=== PATIENT | female | born 1965 | race Caucasian/White ===

== ENCOUNTER 2020-09-07 10:10 | Inpatient (IN) ==
[2020-09-07] MEDS ORDERED: 0.9 % SODIUM CHLORIDE 1,000 ML IV ONE ×3 (10:33→21:35)
[2020-09-07] MEDS ORDERED: ONDANSETRON 4 MG/2 ML VIAL IV ONE (10:33)
--- NOTE | 2020-09-07 10:40 | Emergency Department Note ---
Abdominal Pain HPI General Chief Complaint: Abdominal Pain Stated Complaint: abdominal pain Time Seen by Provider: 09/07/20 10:31 Source: patient Mode of arrival: wheelchair Limitations: no limitations History of Present Illness HPI Narrative: Narrative: Presents to room T6 for evaluation of midepigastric abdominal pain. Patient has a history of recurrent chronic pancreatitis as well as IBS. The patient was seen in the emergency department last week for similar symptoms. At that time lipase was [address] scan showed inflammation of the pancreatic head consistent with pancreatitis. The patient was treated s ymptomatically and discharged home. The patient reports that she has had persistent pain with nausea. The symptoms are getting worse so she was advised by her PCP to return to the emergency department for further evaluation. There is no fevers or chills. No hematemesis. No black stool. No rectal bleeding. Related Data Home Medications Medication Instructions Recorded Confirmed Advocare probiotic PO QDAY 05/29/18 07/24/20 acetaminophen 1,000 mg PO PRN PRN 05/29/18 09/02/20 loperamide See Rx Instructions PO .COMPLEX PRN 07/09/20 09/02/20 naltrexone PO 07/09/20 07/24/20 Previous Rx's Medication Instructions Recorded butalbital 50 mg-acetaminophen 325 1 cap PO Q4H PRN #30 cap 04/15/19 mg-caffeine 40 mg-codeine 30 mg cap clobetasol 0.05 % topical cream 1 applic TOPICAL BID #60 g 11/27/19 chlorthalidone 25 mg tablet 25 mg PO QDAY #30 tab 08/07/20 cyclobenzaprine 10 mg tablet 10 mg PO TID PRN #90 tab 08/07/20 lisinopril 40 mg tablet 40 mg PO QDAY #90 tab 08/07/20 ondansetron HCl [Zofran] 4 mg PO Q6H PRN #14 tab 09/02/20 oxycodone-acetaminophen [Percocet] 1 tab PO Q6H PRN #14 tab 09/02/20 estradiol 1 mg tablet 1 mg PO QDAY #90 tab 09/07/20 propranolol 80 mg capsule,extended 160 mg PO QDAY #180 cap 09/07/20 release 24 hr rabeprazole 20 mg tablet,delayed 20 mg PO QDAY #90 tab 09/07/20 release Allergies Allergy/AdvReac Type Severity Reaction Status Date / Time ibuprofen Allergy Unknown Stomach Verified 07/24/20 13:10 upset, diarrhea NSAIDS (Non-Steroidal Allergy Unknown Unknown Verified 07/24/20 13:10 Anti-Inflamma Review of Systems ROS ROS Narrative: Narrative: All systems ED: reviewed and negative except as stated. [facility] Narrative Patient History Narrative: Narrative: Medical/Surgical/Family History All Active Problems (Updated 09/07/20 @ 14:10 by Merrick Calero MD) Abdominal pain (Acute) Sinusitis, acute (Chronic) Mixed hyperlipidemia (Chronic) Chronic kidney disease, stage III (moderate) (Chronic) Herpes simplex without mention of complication (Chronic) Postcoital bleeding (Chronic) Abnormal results of kidney function studies (Chronic) Genital herpes (Chronic) Hot flashes (Chronic) Vaginal atrophy (Chronic) Hormone replacement therapy (Chronic) Neck pain, chronic (Chronic) Mixed irritable bowel syndrome (Chronic) Obesity (BMI 30.0-34.9) (Chronic) Grief reaction (Chronic) Cephalgia (Chronic) CFS (chronic fatigue syndrome) (Chronic) Pyrosis (Chronic) Rectal bleeding (Chronic) Gastric regurgitation (Chronic) Pancreatitis (Chronic) Dysphagia (Chronic) Diarrhea (Chronic) Delayed gastric emptying (Chronic) Costochondritis (Chronic) Colicky LUQ abdominal pain (Chronic) Bloating (Chronic) Disorder of thyroid gland (Chronic) Stomach ulcer (Chronic) High cholesterol (Chronic) High blood pressure (Chronic) IBS (irritable bowel syndrome) (Chronic) Anemia (Chronic) Vitamin D deficiency (Chronic) Swelling of limb (Chronic) Migraine (Chronic) Hyperlipidemia (Chronic) Gastroesophageal reflux (Chronic) Myositis (Chronic) Fibromyalgia (Chronic) Esophageal stricture (Chronic) Chronic pancreatitis (Chronic) Chronic kidney disease, stage II (mild) (Chronic ~12/12/12) Medical History Abnormal results of kidney function studies Anemia Bloating Cephalgia CFS (chronic fatigue syndrome) Chronic kidney disease, stage II (mild) (~12/12/12) Chronic kidney disease, stage III (moderate) Chronic pancreatitis Colicky LUQ abdominal pain Costochondritis Delayed gastric emptying Diarrhea Disorder of thyroid gland Dysphagia Elevated BP without diagnosis of hypertension Esophageal stricture Fibromyalgia Gastric regurgitation Gastroesophageal reflux Genital herpes Grief reaction Herpes simplex without mention of complication High blood pressure hard to control at times High cholesterol Hormone replacement therapy Hot flashes Hyperlipidemia IBS (irritable bowel syndrome) Migraine Mixed hyperlipidemia Mixed irritable bowel syndrome Myositis Neck pain, chronic Obesity (BMI 30.0-34.9) Pancreatitis Postcoital bleeding Pyrosis Rectal bleeding Sinusitis, acute Stomach ulcer Swelling of limb Vaginal atrophy Vitamin D deficiency Surgical History History of appendectomy History of cholecystectomy History of colonoscopy (~2015) Dr Benz & 2007, Dr Guan History of esophagogastroduodenoscopy (EGD) Dr Benz-12/25/14 and 10/04/16 History of hysterectomy History of oophorectomy Status post biopsy of thyroid gland (~04/13/18) Family History Mother Breast cancer in female Father Colon cancer Dementia Diabetes mellitus Hypertension, essential Heart attack Alzheimer's disease Brother Anal cancer Colon cancer Grandfather Migraines Maternal Grandmother Migraines Paternal Sister Thyroid disease Social History Smoking Status: Never smoker Alcohol Intake Frequency: holiday/special occasion only Substance Use: does not use Exam Narrative Narrative: Narrative: General Limitations: no limitations General appearance: Present alert and in no apparent distress Head Head: Present atraumatic, normocephalic and normal inspection Eye Eye: Present normal appearance and EOMI; Absent conjunctival injection ENT ENT: Present normal exam and mucous membranes moist Neck Neck: Present normal inspection and trachea midline Respiratory Respiratory: Present normal lung sounds bilaterally; Absent respiratory distress Cardiovascular Cardiovascular: Present regular rate, normal rhythm and normal heart sounds Adbominal Abdominal: Present soft and tenderness (Moderate diffuse tenderness to palpation throughout the epigastrium, no focal tenderness); Absent distention, guarding and rebound Extremities Extremities: Present normal inspection; Absent tenderness Back Back: Present normal inspection; Absent tenderness Neurological Neurological: Present alert, oriented X3 and CN II-XII intact; Absent motor sensory deficit Psychiatric Psychiatric: Present normal affect and normal mood Skin Skin: Present warm (WNL) and dry; Absent rash Course Vital Signs Vital signs: Vital Signs Temperature 97.9 F 09/07/20 10:10 Pulse Rate 100 H 09/07/20 10:10 Respiratory Rate 18 09/07/20 10:10 Blood Pressure 91/55 09/07/20 10:10 Pulse Oximetry (%) 97 09/07/20 10:10 Temperature 97.9 F 09/07/20 10:10 Pulse Rate 80 09/07/20 13:01 Respiratory Rate 18 09/07/20 10:10 Blood Pressure 97/49 09/07/20 13:01 Pulse Oximetry (%) 94 09/07/20 13:01 [facility] Narrative Medical decision making narrative: Narrative: The patient presents for evaluation of abdominal pain which is diffuse and consistent with previous diagnosis of pancreatitis. The patient's lipase today is normal. The patient's BUN and creatinine is significantly elevated compared to 5 days ago. The patient gives additional history stating that she has been evaluated by nephrology, Dr. Olivier, in the past for kidney issues. She does report that she has had decreased urine output. The patient also takes chlorthalidone and lisinopril but states she started the chlorthalidone over a month ago. I suspect the patient's elevated BUN creatinine is most likely related to the contrast associated with her CT 5 days ago as well as decreased oral intake secondary to her pancreatitis diagnosis. The patient has a nonsurgical abdomen on exam and I do not believe she requires additional advanced imaging such as CT scan of the abdomen pelvis. Of note, CT scan 5 days ago showed no significant abnormality of the renal collecting system. The patient was treated with IV fluid as well as symptomatically. I did discuss the case with Dr. Olivier and he agrees to the treatment plan and admission. Of also discussed the case with the admitting hospitalist, Dr. Glass. Lab Data Result diagrams: 09/07/20 10:31 09/07/20 10:31 Labs: Lab Results 09/07/20 09/07/20 Range/Units 10:31 10:31 WBC 14.2 H (4.5-11.0) K/mcL RBC 4.65 (4.00-5.20) M/mcL Hgb 13.8 (12.0-15.0) g/dL Hct 40.6 (36.0-48.0) % MCV 87.3 (80.0-100.0) fL MCH 29.7 (26.0-34.0) pg MCHC 34.0 (31.0-36.0) g/dL RDW 12.3 (11.5-14.5) % Plt Count 468 H (140-440) K/mcL MPV 9.1 (7.4-10.4) fL Neut % (Auto) 68.1 (38.0-78.0) % Lymph % (Auto) 19.6 (15.0-49.0) % [place] % (Auto) 9.0 (1.0-12.0) % Eos % (Auto) 2.7 (0.0-7.0) % Baso % (Auto) 0.6 (0.0-2.0) % Lymph # (Auto) 2.78 (1.50-4.80) K/mcL [place] # (Auto) 1.28 H (0.10-0.90) K/mcL Eos # (Auto) 0.38 (0.00-0.70) K/mcL Baso # (Auto) 0.08 (0.00-0.20) K/mcL Absolute Neutrophils 9.67 H (1.80-8.00) K/mcL Sodium 130 L (133-145) mmol/L Potassium 3.3 (3.3-5.1) mmol/L Chloride 85 L (96-108) mmol/L Carbon Dioxide 28 (22-30) mmol/L Anion Gap 17.0 H (8.0-16.0) BUN 40 H (6-20) mg/dL Creatinine 4.6 H (0.6-1.1) mg/dL GFR Calculation 10 Glucose 142 H (70-105) mg/dL Calcium 9.6 (8.6-10.4) mg/dL Total Bilirubin 0.4 (0.1-1.0) mg/dL AST 25 (<32) U/L ALT 27 (<40) U/L Alkaline Phosphatase 153 H (39-117) U/L Total Protein 8.3 (5.9-8.4) gm/dL Albumin 3.9 (3.2-5.2) gm/dL Globulin 4.4 H (2.2-3.7) gm/dL Albumin/Globulin Ratio 0.9 L (1.0-2.3) Lipase 45 (7-60) U/L Discharge Plan Patient/Caregiver Discharge Instructions Pt seen by DIE HARDENER/PA only: No Clinical Impression: Abdominal pain, Abnormal results of kidney function studies Patient Disposition: Xfer As Inpt ([facility]) Follow up with: Tegan Mcdonough PA-C [Primary Care Provider] - Prescriptions: No Action dxxntouvzj-[id number]-cod [id number] mg capsule 1 cap PO Q4H PRN (Reason: migraine headache) Qty: 30 RF: 0 clobetasol 0.05 % cream 1 applic TOPICAL BID Qty: 60 RF: 0 cyclobenzaprine 10 mg tablet 10 mg PO TID PRN (Reason: muscle spasm) Qty: 90 RF: 0 propranolol 80 mg capsule,extended release 24hr 160 mg PO QDAY Qty: 180 RF: 1 rabeprazole 20 mg tablet,delayed release (DR/EC) 20 mg PO QDAY Qty: 90 RF: 1 estradiol 1 mg tablet 1 mg PO QDAY Qty: 90 RF: 1 acetaminophen 1,000 mg PO PRN PRN (Reason: Pain) RF: 0 Advocare probiotic PO QDAY RF: 0 loperamide See Rx Instructions PO .COMPLEX PRN (Reason: Diarrhea) RF: 0 naltrexone PO RF: 0 chlorthalidone 25 mg tablet 25 mg PO QDAY Qty: 30 RF: 2 lisinopril 40 mg tablet 40 mg PO QDAY Qty: 90 RF: 1 oxycodone-acetaminophen [Percocet] 10-325 mg tablet 1 tab PO Q6H PRN (Reason: pain) Qty: 14 RF: 0 ondansetron HCl [Zofran] 4 mg tablet 4 mg PO Q6H PRN (Reason: nausea and vomiting) Qty: 14 RF: 0
[2020-09-07] MEDS: HYDROmorphone 0.5 MG/0.5 ML SYRINGE IV PRN ×2 (11:05→13:17)
[2020-09-07 11:26] LABS: Basophils # (Auto) 0.08 K/mcL (0.00-0.20); Basophils % (Auto) 0.6 % (0.0-2.0); Eosinophils # (Auto) 0.38 K/mcL (0.00-0.70); Eosinophils % (Auto) 2.7 % (0.0-7.0); Hematocrit 40.6 % (36.0-48.0); Hemoglobin 13.8 g/dL (12.0-15.0); Lymphocytes # (Auto) 2.78 K/mcL (1.50-4.80); Lymphocytes % (Auto) 19.6 % (15.0-49.0); Mean Cell Volume 87.3 fL (80.0-100.0); Mean Platelet Volume 9.1 fL (7.4-10.4); Monocytes # (Auto) 1.28 K/mcL (0.10-0.90); Neutrophils % (Auto) 68.1 % (38.0-78.0); Platelet Count 468 K/mcL (140-440); RBC 4.65 M/mcL (4.00-5.20); Red Cell Distribution Width 12.3 % (11.5-14.5); WBC 14.2 K/mcL (4.5-11.0)
[2020-09-07 11:46] LABS: ALT/SGPT 27 U/L (<40); AST/SGOT 25 U/L (<32); Albumin 3.9 gm/dL (3.2-5.2); Albumin/Globulin Ratio 0.9 (1.0-2.3); Alkaline Phosphatase 153 U/L (39-117); Bilirubin,Total 0.4 mg/dL (0.1-1.0); Blood Urea Nitrogen 40 mg/dL (6-20); Calcium 9.6 mg/dL (8.6-10.4); Carbon Dioxide 28 mmol/L (22-30); Chloride 85 mmol/L (96-108); Globulin 4.4 gm/dL (2.2-3.7); Glomerular Filtration Rate 10; Glucose 142 mg/dL (70-105)
--- NOTE | 2020-09-07 14:39 | Internal Med History&Physical ---
HPI History of Present Illness Patient information: Note initiated : 09/07/20 at 2:39 pm Service Date, if different from initiated Date: [] Patient: Priscila Ames a 54 y/o F admitted on for abdominal pain. Chief Complaint: [] History of present illness: Ms. Ames is a 54 year old F with a history of chronic abdominal pain, diagnosis of chronic pancreatitis in her chart, history of CKD stage III, the recent creatinines would appear to be CKD stage II, fibromyalgia, irritable bowel, history of migraine who presents to the ED with persistent abdominal pain and nausea. Patient was seen on 09/02 with abdominal pain. She had a normal lipase at 60, however she had epigastric pain radiating to the back and CT scan of the abdomen with contrast showed inflammation around the pancreatic head. She was diagnosed with acute exacerbation of pancreatitis. She was discharged home with symptomatic medications. States since that time she has not felt better. She has been unable to eat or drink much secondary to nausea as well as the constant epigastric pain which continues to radiate to the back. She has not had any emesis. During this time she is noticed that she has had decreased urine output and feels lightheaded when she stands. She returns because her symptoms have not improved except that her abdomen does not feel as bloated as it was on 09/02. In the ED evaluation shows epigastric tenderness. Lab evaluation is remarkable for acute kidney injury with creatinine of 4.6, whereas it was 1.0 on 09/02. There is mild hyponatremia, sodium 130. Her white count was 14.2, down from 18.8 on 09/02. Lipase today is 45. Total bilirubin and transaminases are normal. She had normal triglycerides back in April. She is being admitted for further management of acute kidney injury and ongoing pancreatitis. Patient denies fevers, she has felt chilled at night, this is somewhat chronic but more so in the last week. She usually has hot flashes, but none recently. She feels like she is starting to get a migraine with occasional vision prodrome. Her throat is sore, she feels that is because her mouth is been dry. As noted she feels lightheaded when she stands, has noted decreased urine output, no dysuria. Nausea as noted above, no emesis, abdominal pain in the epigastrium as above. No rashes, no joint swelling, no bleeding or bruising, though she notes she tends to bruise easily. She has IBS, most recent bowel movement appeared abnormal, perhaps with bilious looking content. No blood. She feels fatigued and overall has malaise. Review of Systems All systems: reviewed and no additional remarkable complaints except as stated PFSH PFSH All Active Problems (Updated 09/07/20 @ 14:10 by Merrick Calero MD) Abdominal pain (Acute) Sinusitis, acute (Chronic) Mixed hyperlipidemia (Chronic) Chronic kidney disease, stage III (moderate) (Chronic) Herpes simplex without mention of complication (Chronic) Postcoital bleeding (Chronic) Abnormal results of kidney function studies (Chronic) Genital herpes (Chronic) Hot flashes (Chronic) Vaginal atrophy (Chronic) Hormone replacement therapy (Chronic) Neck pain, chronic (Chronic) Mixed irritable bowel syndrome (Chronic) Obesity (BMI 30.0-34.9) (Chronic) Grief reaction (Chronic) Cephalgia (Chronic) CFS (chronic fatigue syndrome) (Chronic) Pyrosis (Chronic) Rectal bleeding (Chronic) Gastric regurgitation (Chronic) Pancreatitis (Chronic) Dysphagia (Chronic) Diarrhea (Chronic) Delayed gastric emptying (Chronic) Costochondritis (Chronic) Colicky LUQ abdominal pain (Chronic) Bloating (Chronic) Disorder of thyroid gland (Chronic) Stomach ulcer (Chronic) High cholesterol (Chronic) High blood pressure (Chronic) IBS (irritable bowel syndrome) (Chronic) Anemia (Chronic) Vitamin D deficiency (Chronic) Swelling of limb (Chronic) Migraine (Chronic) Hyperlipidemia (Chronic) Gastroesophageal reflux (Chronic) Myositis (Chronic) Fibromyalgia (Chronic) Esophageal stricture (Chronic) Chronic pancreatitis (Chronic) Chronic kidney disease, stage II (mild) (Chronic ~12/12/12) Medical History Abnormal results of kidney function studies Anemia Bloating Cephalgia CFS (chronic fatigue syndrome) Chronic kidney disease, stage II (mild) (~12/12/12) Chronic kidney disease, stage III (moderate) Chronic pancreatitis Colicky LUQ abdominal pain Costochondritis Delayed gastric emptying Diarrhea Disorder of thyroid gland Dysphagia Elevated BP without diagnosis of hypertension Esophageal stricture Fibromyalgia Gastric regurgitation Gastroesophageal reflux Genital herpes Grief reaction Herpes simplex without mention of complication High blood pressure hard to control at times High cholesterol Hormone replacement therapy Hot flashes Hyperlipidemia IBS (irritable bowel syndrome) Migraine Mixed hyperlipidemia Mixed irritable bowel syndrome Myositis Neck pain, chronic Obesity (BMI 30.0-34.9) Pancreatitis Postcoital bleeding Pyrosis Rectal bleeding Sinusitis, acute Stomach ulcer Swelling of limb Vaginal atrophy Vitamin D deficiency Surgical History History of appendectomy History of cholecystectomy History of colonoscopy (~2015) Dr Benz & 2008, Dr Guan History of esophagogastroduodenoscopy (EGD) Dr Benz-12/25/14 and 10/04/16 History of hysterectomy History of oophorectomy Status post biopsy of thyroid gland (~04/13/18) Family History Mother Breast cancer in female Father Colon cancer Dementia Diabetes mellitus Hypertension, essential Heart attack Alzheimer's disease Brother Anal cancer Colon cancer Grandfather Migraines Maternal Grandmother Migraines Paternal Sister Thyroid disease Social History marital status: occupational status: employed smoking status: Never smoker alcohol intake frequency: holiday/special occasion only substance use type: does not use MEDS/ALLERGIES Home Medications and Allergies Home Medications Medication Instructions Recorded Confirmed Type acetaminophen 1,000 mg PO PRN PRN 05/29/18 09/07/20 History butalbital 50 mg-acetaminophen 325 1 cap PO Q4H PRN #30 cap 04/15/19 09/07/20 Rx mg-caffeine 40 mg-codeine 30 mg cap loperamide See Rx Instructions PO .COMPLEX PRN 07/09/20 09/07/20 History naltrexone 3 mg PO HS 07/09/20 09/07/20 History chlorthalidone 25 mg tablet 25 mg PO QDAY #30 tab 08/07/20 09/07/20 Rx cyclobenzaprine 10 mg tablet 10 mg PO TID PRN #90 tab 08/07/20 09/07/20 Rx lisinopril 40 mg tablet 40 mg PO QDAY #90 tab 08/07/20 09/07/20 Rx ondansetron HCl [Zofran] 4 mg PO Q6H PRN #14 tab 09/02/20 09/07/20 Rx oxycodone-acetaminophen [Percocet] 1 tab PO Q6H PRN #14 tab 09/02/20 09/07/20 Rx clobetasol 1 applic TOPICAL BID PRN 09/07/20 09/07/20 History estradiol 1 mg tablet 1 mg PO QDAY #90 tab 09/07/20 09/07/20 Rx propranolol 80 mg capsule,extended 160 mg PO QDAY #180 cap 09/07/20 09/07/20 Rx release 24 hr rabeprazole 20 mg tablet,delayed 20 mg PO QDAY #90 tab 09/07/20 09/07/20 Rx release Allergies Allergy/AdvReac Type Severity Reaction Status Date / Time ibuprofen Allergy Unknown Stomach Verified 07/24/20 13:10 upset, diarrhea NSAIDS (Non-Steroidal Allergy Unknown Unknown Verified 07/24/20 13:10 Anti-Inflamma EXAM Constitutional Vitals: Temp Pulse Resp BP Pulse Ox 97.9 F 80 18 94/56 97 09/07/20 10:10 09/07/20 13:52 09/07/20 10:10 09/07/20 13:31 09/07/20 13:52 GENERAL: Alert, oriented, appears mildly uncomfortable. Cooperative, appears stated age. HEENT: Atraumatic. PERRL at 6 mm, conjunctiva clear, no scleral icterus. Hearing grossly intact. Oropharynx with dry mucous membranes, no lip or gum lesions, no pharyngeal erythema, tongue midline NECK: Supple without meningismus, no thyromegaly RESPIRATORY: Breath sounds clear bilaterally without wheezes or rhonchi. Respiratory effort is unlabored. CARDIOVASCULAR: Regular rate and rhythm, no murmur gallop or rub. No peripheral edema. Carotid pulses 2+. GI: Abdomen soft, mild to moderate epigastric tenderness without guarding or rebound. Bowel sounds are decreased but present. No right upper quadrant tenderness. MUSCULOSKELETAL: No joint erythema or swelling, normal range of motion in all extremities. SKIN: Intact, warm, dry. No lesions. Skin turgor normal. NEUROLOGIC: Cranial nerves II through XII grossly intact. Muscle mass normal. Strength 5/5 in the upper and lower extremities. Sensation intact to light touch bilaterally. PSYCHIATRIC: Alert, oriented x3, mood congruent to situation, normal affect, normal insight. DATA Data Completed and Pending Labs: Labs from last 24 hours 09/07/20 09/07/20 10:31 10:31 WBC 14.2 H RBC 4.65 Hgb 13.8 Hct 40.6 MCV 87.3 MCH 29.7 MCHC 34.0 RDW 12.3 Plt Count 468 H MPV 9.1 Neut % (Auto) 68.1 Lymph % (Auto) 19.6 [place] % (Auto) 9.0 Eos % (Auto) 2.7 Baso % (Auto) 0.6 Lymph # (Auto) 2.78 [place] # (Auto) 1.28 H Eos # (Auto) 0.38 Baso # (Auto) 0.08 Absolute Neutrophils 9.67 H Sodium 130 L Potassium 3.3 Chloride 85 L Carbon Dioxide 28 Anion Gap 17.0 H BUN 40 H Creatinine 4.6 H GFR Calculation 10 Glucose 142 H Calcium 9.6 Total Bilirubin 0.4 AST 25 ALT 27 Alkaline Phosphatase 153 H Total Protein 8.3 Albumin 3.9 Globulin 4.4 H Albumin/Globulin Ratio 0.9 L Lipase [address] scan - abdomen: Status: image reviewed by me Additional comments: Study from 09/02 reviewed Impression: Acute pancreatitis involving the pancreatic head. A/P Narrative A/P Narrative: #Acute kidney injury: Patient's creatinine was 1.0 on 09/02, now 4.6 on 09/07. -Clinically she has noted decreased urine output -Has had ongoing nausea and decreased oral intake -Differential includes ATN/contrast-induced nephropathy after IV contrast on 09/02 -ATN from low blood pressure from dehydration and prerenal causes from dehydration also possible -Chlorthalidone and lisinopril may be contributing -No nonsteroidal use #Acute pancreatitis: Patient with chronic epigastric pain and diagnosis of chronic pancreatitis, but with acute inflammation at the head on 09/02 -Pain ongoing associated with nausea -Unclear trigger, no evidence of biliary disease, normal triglycerides when checked 04/2020 #CKD stage III, though most recently appears to be stage II: Unclear etiology, has seen nephrology in the past #Migraines: On propranolol for prophylaxis #Fibromyalgia #Irritable bowel syndrome Plan: * Inpatient admission * Nephrology consultation, Dr. Olivier called from the ED * Check renal ultrasound * Check fractional excretion of sodium and urea * Hold lisinopril, chlorthalidone * Hold propranolol with low normal blood pressures * Received 2 L fluid in the ED, will begin maintenance fluids * Avoid nephrotoxins, follow urine output * Clear liquid diet * Pain medications for pancreatitis * Antiemetics as needed Prophylaxis: Subcutaneous unfractionated heparin CODE STATUS: Full code
[2020-09-07] MEDS ORDERED: SENNOSIDES 1 TABLET PO PRN (15:23)
[2020-09-07] MEDS ORDERED: 0.9 % SODIUM CHLORIDE 1,000 ML IV SCH (15:23)
[2020-09-07] MEDS: ONDANSETRON 4 MG/2 ML VIAL IV PRN (16:05)
[2020-09-07] MEDS: morphine 4 MG/ML VIAL IV PRN ×2 (16:05→20:12)
--- NOTE | 2020-09-07 17:19 | Ultrasound Report ---
CLINICAL INFORMATION: [facility]AR COMPARISON: None. FINDINGS: Both kidneys are normal and symmetric in size, position, configuration and echotexture: The right is 11.8 x 5 cm left is 11.8 x 5 cm. No focal renal lesions appreciated: no stones, cysts, solid nodules or hydronephrosis. Urinary bladder has a small amount of urine 20 cc: she was unable to void. No focal lesions IMPRESSION: Negative exam Interpreted and Authenticated by: Mauro Erickson 09/07/20
[2020-09-07] MEDS: HEPARIN 5,000 UNIT/ML VIAL SQ SCH (20:13)
[2020-09-07] MEDS: 0.9 % SODIUM CHLORIDE 10 ML SYRINGE IV SCH (20:13)
[2020-09-07] MEDS ORDERED: PROCHLORPERAZINE 10 MG/2 ML VIAL IV PRN (21:36)
[2020-09-07] MEDS: 0.9 % SODIUM CHLORIDE 1,000 ML IV SCH (22:55)
[2020-09-07] MEDS: ACETAMINOPHEN 325 MG TABLET PO PRN (23:04)
[2020-09-07] MEDS: hydrOXYzine 10 MG TABLET PO PRN (23:12)
[2020-09-08] MEDS: 0.9 % SODIUM CHLORIDE 1,000 ML IV SCH ×6 (02:55→22:11)
[2020-09-08 04:25] LABS: Appearance,Urine CLOUDY (Clear); Bacteria,Urine MOD /hpf (0); Bilirubin,Urine Negative (Negative); Color,Urine AMBER; Culture Indicated,Urine Yes; Glucose,Urine (UA) Negative (Negative); Ketones,Urine Negative (Negative); Leukocyte Esterase,Urine Negative /ug (Negative); Mucus,Urine MOD /hpf; Nitrate,Urine Negative (Negative); Protein,Urine 100 mg/dL (Negative); Urine Blood Negative (Negative); Urine Hyaline Cast 6 /lph (0-2); Urine RBC 1 /hpf (0-3); Urine Squamous Epithelial Cell 1 /hpf (0-4); Urine WBC 7 /hpf (0-4); Urobilinogen,Urine Negative
[2020-09-08 04:26] LABS: Creatinine,Urine Random 125.8 mg/dL (28.0-217.0)
[2020-09-08] MEDS: 0.9 % SODIUM CHLORIDE 10 ML SYRINGE IV SCH ×3 (05:09→20:52)
[2020-09-08] MEDS: ACETAMINOPHEN 325 MG TABLET PO PRN ×2 (07:06→13:02)
[2020-09-08] MEDS: PANTOPRAZOLE 40 MG VIAL IV SCH (07:07)
[2020-09-08 07:58] LABS: ALT/SGPT 16 U/L (<40); AST/SGOT 16 U/L (<32); Albumin 2.5 gm/dL (3.2-5.2); Albumin/Globulin Ratio 0.9 (1.0-2.3); Alkaline Phosphatase 91 U/L (39-117); Bilirubin,Direct < 0.2 mg/dL (0-0.3); Bilirubin,Total 0.3 mg/dL (0.1-1.0); Blood Urea Nitrogen 44 mg/dL (6-20); Calcium 7.3 mg/dL (8.6-10.4); Carbon Dioxide 22 mmol/L (22-30); Chloride 101 mmol/L (96-108); Globulin 2.8 gm/dL (2.2-3.7); Glomerular Filtration Rate 10; Glucose 85 mg/dL (70-105); Lactate Dehydrogenase 157 U/L (135-225); Phosphorous 3.6 mg/dL (2.5-4.5); Triglycerides 222 mg/dL (<150); Uric Acid 8.6 mg/dL (2.5-8.0)
[2020-09-08] MEDS: ESTRADIOL 1 MG TABLET PO SCH (09:42)
[2020-09-08] MEDS: HEPARIN 5,000 UNIT/ML VIAL SQ SCH ×2 (09:42→20:53)
--- NOTE | 2020-09-08 13:03 | Internal Med Progress Note ---
SUBJECTIVE Subjective Patient information: Note initiated : 09/08/20 at 12:59 pm Service Date, if different from initiated Date: [] Patient: Priscila Ames a 54 y/o F admitted on 09/07/20 for abdominal pain. Chief Complaint: [] Interval history: 09/07 Ms. Ames is a 54 year old F with a history of chronic abdominal pain, diagnosis of chronic pancreatitis in her chart, history of CKD stage III, the recent creatinines would appear to be CKD stage II, fibromyalgia, irritable bowel, history of migraine who presents to the ED with persistent abdominal pain and nausea. Patient was seen on 09/02 with abdominal pain. She had a normal lipase at 60, h owever she had epigastric pain radiating to the back and CT scan of the abdomen with contrast showed inflammation around the pancreatic head. She was diagnosed with acute exacerbation of pancreatitis. She was discharged home with symptomatic medications. States since that time she has not felt better. She has been unable to eat or drink much secondary to nausea as well as the constant epigastric pain which continues to radiate to the back. She has not had any emesis. During this time she is noticed that she has had decreased urine output and feels lightheaded when she stands. She returns because her symptoms have not improved except that her abdomen does not feel as bloated as it was on 09/02. In the ED evaluation shows epigastric tenderness. Lab evaluation is remarkable for acute kidney injury with creatinine of 4.6, whereas it was 1.0 on 09/02. There is mild hyponatremia, sodium 130. Her white count was 14.2, down from 18.8 on 09/02. Lipase today is 45. Total bilirubin and transaminases are normal. She had normal triglycerides back in April. She is being admitted for fur ther management of acute kidney injury and ongoing pancreatitis. 09/08 Patient received further fluid boluses last evening, maintenance fluids increased 250 mL/hour. Eventually started producing urine, and her urine output has picked up this morning. Abdominal pain is improved. Blood pressures have normalized with systolics in the 100s. Creatinine unchanged at 4.7 this morning. Did discuss with Dr. Olivier on the phone, may represent plateau phase of contrast-induced nephropathy. Pertinent ROS: Tolerating clear liquids. Abdominal pain is improved. No dyspnea. Feels much less anxious this morning. Constitutional Vitals: Vital Signs Temp Pulse Resp BP Pulse Ox 98.1 F 76 20 99/59 93 09/08/20 12:00 09/08/20 12:00 09/08/20 12:00 09/08/20 12:00 09/08/20 12:00 Period Temp Pulse Resp BP Sys/Rinaldi Pulse Ox Last 24 Hr 97.6 F-98.9 F 75-85 16-20 81-105/43-62 93-100 Intake and Output 09/07/20 09/08/20 09/08/20 21:59 05:59 13:59 Intake Total 1685 3115 2150 Output Total 400 600 Balance 1685 2715 1550 Weight 185 lb GENERAL: Sitting in bed, no acute distress RESPIRATORY: Clear bilaterally, good aeration to bases CARDIOVASCULAR: Regular rate and rhythm ABDOMEN: Nondistended soft, mild epigastric tenderness, diminished bowel sounds, no rebound or guarding EXTREMITIES: Trace edema NEURO: Alert, oriented x3, moves all extremities equally Intake & Output: Intake & Output 09/07/20 09/08/20 09/08/20 21:59 05:59 13:59 Intake Total 1685 3115 2150 Output Total 400 600 Balance 1685 2715 1550 Weight 185 lb Intake: IV 1685 2315 1999 Sodium Chloride 0.9% 1,000 ml @ 1685 2315 2000 250 mls/hr IV .Q4H [facility] Rx#: [id number] Oral 0 800 150 Output: Void Amount 400 600 Other: Meal Breakfast Percent of Meal Consumed 25% Feeding Ability Assist with Tray Set Up Urine Appearance Cloudy Sediment Urine Color Dark Victoria Dark Yellow Urine Odor Strong Strong Stool Size Moderate Stool Color Yellow Brown Green Yellow Cruz Colored Stool Consistency Loose Liquid Loose # Voids 1 OBJ DATA Labs CBC & Chem 7: 09/07/20 10:31 09/08/20 05:37 Labs: Abnormal Lab Results 09/08/20 09/08/20 09/07/20 05:37 03:26 10:31 WBC Plt Count Dare # (Auto) Absolute Neutrophils Sodium 130 L Chloride 85 L Anion Gap 17.0 H BUN 44 H 40 H Creatinine 4.7 H 4.6 H Glucose 142 H Uric Acid 8.6 H Calcium 7.3 L GGT 68 H Alkaline Phosphatase 153 H Total Protein 5.3 L Albumin 2.5 L Globulin 4.4 H Albumin/Globulin Ratio 0.9 L 0.9 L Triglycerides 222 H Urine Appearance Cloudy A Urine Protein 100 A Urine WBC 7 H Urine Bacteria Mod A Hyaline Casts 6 H Urine Mucus Mod A 09/07/20 10:31 WBC 14.2 H Plt Count 468 H Dare # (Auto) 1.28 H Absolute Neutrophils 9.67 H Sodium Chloride Anion Gap BUN Creatinine Glucose Uric Acid Calcium GGT Alkaline Phosphatase Total Protein Albumin Globulin Albumin/Globulin Ratio Triglycerides Urine Appearance Urine Protein Urine WBC Urine Bacteria Hyaline Casts Urine Mucus Meds: Medications Acetaminophen (Acetaminophen 325 Mg Tablet) 650 mg PO Q6HP PRN; Protocol PRN Reason: Per Pain Protocol/Fever > 101 Last Admin: 09/08/20 07:06 Dose: 650 mg Documented by: Estradiol (Estradiol 1 Mg Tablet) 1 mg PO QDAY [facility] Last Admin: 09/08/20 09:42 Dose: 1 mg Documented by: Heparin Sodium (Porcine) (Heparin 5,000 Unit/Ml Vial) 5,000 unit SQ Q12 [facility] Last Admin: 09/08/20 09:42 Dose: 5,000 unit Documented by: Hydroxyzine HCl (Hydroxyzine 10 Mg Tablet) 10 mg PO TIDP PRN PRN Reason: Anxiety Last Admin: 09/07/20 23:12 Dose: 10 mg Documented by: Sodium Chloride (Sodium Chloride 0.9%) 1,000 mls @ 250 mls/hr IV .Q4H [facility] Last Admin: 09/08/20 11:41 Dose: 250 mls/hr Documented by: Morphine Sulfate (Morphine 4 Mg/Ml Vial) 4 mg IV Q4HP PRN; Protocol PRN Reason: Per Pain Protocol Last Admin: 09/07/20 20:12 Dose: 4 mg Documented by: Ondansetron HCl (Ondansetron 4 Mg/2 Ml Vial) 4 mg IV Q6HP PRN PRN Reason: Nausea And Vomiting Last Admin: 09/07/20 16:05 Dose: 4 mg Documented by: Oxycodone/Acetaminophen (Oxycodone/Apap 10/325mg Tablet) 1 tab PO Q6H PRN; Protocol PRN Reason: pain Pantoprazole Sodium (Pantoprazole 40 Mg Vial) [facility] Last Admin: 09/08/20 07:07 Dose: 40 mg Documented by: Naltrexone 3 Mg 1 dose PO [facility] Prochlorperazine (Prochlorperazine 10 Mg/2 Ml Vial) 5 mg IV Q4HP PRN PRN Reason: Nausea And Vomiting Senna (Sennosides 1 Tablet) 2 tab PO HS PRN PRN Reason: Constipation Sodium Chloride (0.9 % Sodium Chloride 10 Ml Syringe) 10 ml IV Q8 [facility] Last Admin: 09/08/20 05:09 Dose: Not Given Documented by: Impressions Impression: Renal ultrasound IMPRESSION: Negative exam A/P Narrative A/P Narrative: #Acute kidney injury: Patient's creatinine was 1.0 on 09/02, now 4.6 on 09/07. -Clinically she has noted decreased urine output -Has had ongoing nausea and decreased oral intake -Differential includes ATN/contrast-induced nephropathy after IV contrast on 09/02 -ATN from low blood pressure from dehydration and prerenal causes from de hydration also possible -Chlorthalidone and lisinopril may be contributing -No nonsteroidal use -Creatinine remains 4.7 on 09/08, may be plateau phase of contrast nephropathy -FeNa 1.5% suggesting intrinsic disease consistent with contrast-induced nephropathy/ATN -Renal ultrasound without evidence of hydronephrosis #Acute pancreatitis: Patient with chronic epigastric pain and diagnosis of chron ic pancreatitis, but with acute inflammation at the head on 09/02 -Pain ongoing associated with nausea -Unclear trigger, no evidence of biliary disease, normal triglycerides when checked 04/2020 #CKD stage III, though most recently appears to be stage II: Unclear etiology, has seen nephrology in the past #Migraines: On propranolol for prophylaxis #Fibromyalgia #Irritable bowel syndrome Plan: * Discussed with Dr. Olivier in nephrology, if not improving, he can see the patient tomorrow * Continue fluids and supportive care * Avoid nephrotoxins * Hold lisinopril, chlorthalidone * Hold propranolol with low normal blood pressures * Continue IVF * Clear liquid diet * Pain medications for pancreatitis * Antiemetics as needed Prophylaxis: Subcutaneous unfractionated heparin CODE STATUS: Full code Time Spent With Patient Time: Total time spent is greater than 50% in coordination of care (as documented) at patient's floor/unit and/or counseling patient:
[2020-09-08] MEDS ORDERED: VANCOMYCIN PER PHARMACY IV SCH (18:15)
[2020-09-08] MEDS ORDERED: VANCOMYCIN 1,500 MG in 0.9 % SODIUM CHLORIDE 500 ML IV ONE (19:15)
[2020-09-08] MEDS ORDERED: PANTOPRAZOLE 40 MG TABLET PO ONE (19:46)
[2020-09-08] MEDS: hydrOXYzine 10 MG TABLET PO PRN (22:10)
[2020-09-09] MEDS: 0.9 % SODIUM CHLORIDE 10 ML SYRINGE IV SCH ×3 (04:22→20:52)
[2020-09-09] MEDS: PANTOPRAZOLE 40 MG VIAL IV SCH (07:19)
[2020-09-09] MEDS: 0.9 % SODIUM CHLORIDE 1,000 ML IV SCH ×2 (07:19→18:11)
[2020-09-09] MEDS: ESTRADIOL 1 MG TABLET PO SCH (08:35)
[2020-09-09] MEDS: HEPARIN 5,000 UNIT/ML VIAL SQ SCH ×2 (08:36→20:51)
[2020-09-09 10:09] LABS: ALT/SGPT 13 U/L (<40); AST/SGOT 12 U/L (<32); Albumin 3.1 gm/dL (3.2-5.2); Alkaline Phosphatase 90 U/L (39-117); Bilirubin,Direct < 0.2 mg/dL (0-0.3); Bilirubin,Total 0.2 mg/dL (0.1-1.0); Blood Urea Nitrogen 30 mg/dL (6-20); Calcium 7.9 mg/dL (8.6-10.4); Carbon Dioxide 21 mmol/L (22-30); Chloride 103 mmol/L (96-108); Globulin 3.1 gm/dL (2.2-3.7); Glomerular Filtration Rate 21; Glucose 146 mg/dL (70-105); Lactate Dehydrogenase 174 U/L (135-225); Phosphorous 2.4 mg/dL (2.5-4.5); Triglycerides 238 mg/dL (<150)
[2020-09-09] MEDS: POTASSIUM CHLORIDE 20 MEQ TABLET PO SCH ×2 (10:48→18:08)
[2020-09-09 11:03] LABS: Basophils # (Auto) 0.05 K/mcL (0.00-0.20); Basophils % (Auto) 0.6 % (0.0-2.0); Eosinophils % (Auto) 2.5 % (0.0-7.0); Hematocrit 31.7 % (36.0-48.0); Hemoglobin 10.7 g/dL (12.0-15.0); Lymphocytes # (Auto) 1.74 K/mcL (1.50-4.80); Mean Cell Volume 89.3 fL (80.0-100.0); Mean Corpuscular HGB Conc 33.8 g/dL (31.0-36.0); Mean Platelet Volume 9.4 fL (7.4-10.4); Monocytes # (Auto) 0.56 K/mcL (0.10-0.90); Monocytes % (Auto) 7.1 % (1.0-12.0); Neutrophils % (Auto) 67.8 % (38.0-78.0); Platelet Count 335 K/mcL (140-440); RBC 3.55 M/mcL (4.00-5.20); Red Cell Distribution Width 12.1 % (11.5-14.5); WBC 7.9 K/mcL (4.5-11.0)
--- NOTE | 2020-09-09 11:06 | Consultation ---
DATE OF CONSULTATION: 09/09/2020 REASON FOR CONSULTATION: Acute kidney injury. HISTORY OF PRESENT ILLNESS: The patient is a 54-year-old female with past medical history significant for mild kidney disease stage 2 to 3, history of fibromyalgia, irritable bowel syndrome, and has had on and off pancreatitis. I have not seen her over the last 10 years or so. She presented with abdominal pain on 09/02/2020 and the lipase was at 60, but the CT of the abdomen showed pancreatitis around the pancreatic head, so she was diagnosed to have exacerbation of her pancreatitis. She was discharged home, but she came back because of the continued pain and not able to eat or drink. She felt lethargic. For that reason, she was hospitalized. PAST MEDICAL HISTORY: 1. Chronic abdominal discomfort. 2. Irritable bowel syndrome. 3. Chronic kidney disease stage 2 to 3. 4. Vitamin D deficiency. 5. History of migraine headaches. 6. History of esophageal stricture. She sees MARNI Renee. PAST SURGICAL HISTORY: 1. History of appendectomy. 2. History of cholecystectomy. 3. History of colonoscopy and esophageal duodenoscopy by Dr. Benz. 4. History of hysterectomy and oophorectomy. FAMILY HISTORY: Mother has breast cancer. Father had colon cancer, dementia, diabetes, hypertension, and Alzheimer's. Brother has an anal cancer and colon cancer. Grandfather has migraines. Grandmother has migraines. Sister has thyroid disease. SOCIAL HISTORY: She is , employed, and does not smoke or drink alcohol. MEDICATIONS ON ADMISSION: 1. Acetaminophen. 2. Butalbital. 3. Loperamide. 4. Chlorthalidone 25 mg once daily. 5. Cyclobenzaprine. 6. Lisinopril 40 mg once daily. 7. Propranolol 80 mg extended release. 8. Rabeprazole 20 mg once daily. ALLERGIES: 1. IBUPROFEN. 2. NSAIDS. PHYSICAL EXAMINATION: GENERAL: She is alert, oriented x3, no apparent distress. VITAL SIGNS: Blood pressures are 110-130 systolic with a diastolic in the 60s. Pulse rates have been in the 80s. HEENT: NC/AT. Pupils are reactive. External ear and tympanic membranes appear normal. Oral cavity appears normal. Normal mucosa. NECK: Supple. No jugular venous distention. No lymphadenopathy. No thyromegaly. CHEST: Decreased air entry bilaterally. No rales or rhonchi. CARDIAC: S1, S2. No S3, S4 heard. No murmurs. ABDOMEN: Soft, nontender, no organomegaly, positive bowel sounds. No mass, no rebound. EXTREMITIES: Show 1+ edema. LABORATORY DATA: Sodium 134, potassium 3.1, chloride of 101, CO2 of 21, BUN of 30 with a creatinine of 2.5. Glucose of 146. Uric acid 7.0. Otherwise, everything else looks good. Urinalysis showed a specific gravity of 1.010 with protein 1+ and 7 WBCs. White count is 14.2 with hemoglobin of 13.8 and a platelet count of 468. IMAGING: A CT scan of the kidney did not show any evidence of obstructive process. ASSESSMENT AND PLAN: 1. Acute kidney injury secondary to contrast nephropathy. Serum function creatinine has improved dramatically today. Her potassium is slightly low. We will replenish her potassium and monitor carefully. 2. Acute pancreatitis. She is symptomatically better. She can be discharged and I can follow up with her in a week or so with a set of chemistries. I would discontinue her lisinopril as there is a reported incidence of increased evidence of pancreatitis in patient's on lisinopril. I would probably not put her on any antihypertensives and give her a prescription for amlodipine 5 mg as needed until she is more stable as an outpatient. NORMAN:lorenza Job ID: [id number] Doc ID: [id number] Logan Olivier MD
[2020-09-09] MEDS ORDERED: MAGNESIUM SULFATE 2 GM/50 ML BAG IV PRN (11:32)
[2020-09-09] MEDS ORDERED: NEUTRA PHOS 1 PACKET PO PRN (11:33)
--- NOTE | 2020-09-09 14:04 | Internal Med Progress Note ---
SUBJECTIVE Subjective Patient information: Note initiated : 09/09/20 at 2:00 pm Service Date, if different from initiated Date: [] Patient: Priscila Ames a 54 y/o F admitted on 09/07/20 for abdominal pain. Chief Complaint: [] Interval history: 09/07 Ms. Ames is a 54 year old F with a history of chronic abdominal pain, diagnosis of chronic pancreatitis in her chart, history of CKD stage III, the recent creatinines would appear to be CKD stage II, fibromyalgia, irritable bowel, history of migraine who presents to the ED with persistent abdominal pain and nausea. Patient was seen on 09/02 with abdominal pain. She had a normal lipase at 60, ho wever she had epigastric pain radiating to the back and CT scan of the abdomen with contrast showed inflammation around the pancreatic head. She was diagnosed with acute exacerbation of pancreatitis. She was discharged home with symptomatic medications. States since that time she has not felt better. She has been unable to eat or drink much secondary to nausea as well as the constant epigastric pain which continues to radiate to the back. She has not had any emesis. During this time she is noticed that she has had decreased urine output and feels lightheaded when she stands. She returns because her symptoms have not improved except that her abdomen does not feel as bloated as it was on 09/02. In the ED evaluation shows epigastric tenderness. Lab evaluation is remarkable for acute kidney injury with creatinine of 4.6, whereas it was 1.0 on 09/02. There is mild hyponatremia, sodium 130. Her white count was 14.2, down from 18.8 on 09/02. Lipase today is 45. Total bilirubin and transaminases are normal. She had normal triglycerides back in April. She is being admitted for furt her management of acute kidney injury and ongoing pancreatitis. 09/08 Patient received further fluid boluses last evening, maintenance fluids increased 250 mL/hour. Eventually started producing urine, and her urine output has picked up this morning. Abdominal pain is improved. Blood pressures have normalized with systolics in the 100s. Creatinine unchanged at 4.7 this morning. Did discuss with Dr. Olivier on the phone, may represent plateau phase of contrast-induced nephropathy. 09/09-patient seen in room. No overnight events. Tolerating clears. Abdominal pain much improved. Renal function improved creatinine down from 4.6-2.7. Nephrology on board. Likely contrast induced nephropathy. Continuing hydration. Nephrology recommends discontinuing lisinopril/chlorthalidone due to incidence of pancreatitis. Start amlodipine 5 mg per nephrology. Will likely discharge in 48 hours pending clinical improvement. Constitutional Vitals: Vital Signs Temp Pulse Resp BP Pulse Ox 97.8 F 80 16 117/66 94 09/09/20 12:00 09/09/20 12:00 09/09/20 12:00 09/09/20 12:00 09/09/20 12:00 Period Temp Pulse Resp BP Sys/Rinaldi Pulse Ox Last 24 Hr 97.5 F-98.2 F 79-92 16-20 110-121/59-67 94-98 Intake and Output 09/09/20 09/09/20 09/09/20 05:59 13:59 21:59 Intake Total 550 1240 Output Total 2150 875 Balance -1600 365 Weight 82.871 kg Alert oriented Nonlabored breathing Nondistended nontender abdomen No anxiety Intake & Output: Intake & Output 09/09/20 09/09/20 09/09/20 05:59 13:59 21:59 Intake Total 550 1240 Output Total 2150 875 Balance -1600 365 Weight 82.871 kg Intake: Nourishment/Supplement quantity 0 (ml) IV 1000 Sodium Chloride 0.9% 1,000 ml @ 1000 100 mls/hr IV .Q10H [facility] Rx#: [id number] Oral 550 240 Output: Void Amount 2150 875 Other: Meal Breakfast Percent of Meal Consumed 50% Feeding Ability Independent Nourishment/Supplement name Boost Breeze Urine Appearance Clear Clear Urine Color Bright Yellow Bright Yellow Urine Odor Normal Normal Stool Size Small Stool Color Yellow Green Stool Consistency Liquid Loose # Voids 1 # Bowel Movements 1 OBJ DATA Labs CBC & Chem 7: 09/09/20 09:56 09/09/20 08:50 Labs: Abnormal Lab Results 09/09/20 09/09/20 09/08/20 09:56 08:50 05:37 WBC RBC 3.55 L Hgb 10.7 L Hct 31.7 L Plt Count [place] # (Auto) Absolute Neutrophils Sodium Potassium 3.1 L Chloride Carbon Dioxide 21 L Anion Gap BUN 30 H 44 H Creatinine 2.5 H 4.7 H Glucose 146 H Uric Acid 8.6 H Calcium 7.9 L 7.3 L Phosphorus 2.4 L Magnesium 1.5 L GGT 61 H 68 H Alkaline Phosphatase Total Protein 5.3 L Albumin 3.1 L 2.5 L Globulin Albumin/Globulin Ratio 0.9 L Triglycerides 238 H 222 H Urine Appearance Urine Protein Urine WBC Urine Bacteria Hyaline Casts Urine Mucus 09/08/20 09/07/20 09/07/20 03:26 10:31 10:31 WBC 14.2 H RBC Hgb Hct Plt Count 468 H [place] # (Auto) 1.28 H Absolute Neutrophils 9.67 H Sodium 130 L Potassium Chloride 85 L Carbon Dioxide Anion Gap 17.0 H BUN 40 H Creatinine 4.6 H Glucose 142 H Uric Acid Calcium Phosphorus Magnesium GGT Alkaline Phosphatase 153 H Total Protein Albumin Globulin 4.4 H Albumin/Globulin Ratio 0.9 L Triglycerides Urine Appearance Cloudy A Urine Protein 100 A Urine WBC 7 H Urine Bacteria Mod A Hyaline Casts 6 H Urine Mucus Mod A Meds: Medications Acetaminophen (Acetaminophen 325 Mg Tablet) 650 mg PO Q6HP PRN; Protocol PRN Reason: Per Pain Protocol/Fever > 101 Last Admin: 09/08/20 13:02 Dose: 650 mg Documented by: Estradiol (Estradiol 1 Mg Tablet) 1 mg PO QDAY [facility] Last Admin: 09/09/20 08:35 Dose: 1 mg Documented by: Heparin Sodium (Porcine) (Heparin 5,000 Unit/Ml Vial) 5,000 unit SQ Q12 [facility] Last Admin: 09/09/20 08:36 Dose: 5,000 unit Documented by: Hydroxyzine HCl (Hydroxyzine 10 Mg Tablet) 10 mg PO TIDP PRN PRN Reason: Anxiety Last Admin: 09/08/20 22:10 Dose: 10 mg Documented by: Sodium Chloride (Sodium Chloride 0.9%) 1,000 mls @ 100 mls/hr IV .Q10H [facility] Last Admin: 09/09/20 07:19 Dose: 100 mls/hr Documented by: Magnesium Sulfate (Magnesium Sulfate) 2 gm in 50 mls @ 50 mls/hr IV DAILYP PRN PRN Reason: Mag < or = 1.7 Last Admin: 09/09/20 12:48 Dose: 50 mls/hr Documented by: Morphine Sulfate (Morphine 4 Mg/Ml Vial) 4 mg IV Q4HP PRN; Protocol PRN Reason: Per Pain Protocol Last Admin: 09/07/20 20:12 Dose: 4 mg Documented by: Ondansetron HCl (Ondansetron 4 Mg/2 Ml Vial) 4 mg IV Q6HP PRN PRN Reason: Nausea And Vomiting Last Admin: 09/07/20 16:05 Dose: 4 mg Documented by: Oxycodone/Acetaminophen (Oxycodone/Apap 10/325mg Tablet) 1 tab PO Q6H PRN; Protocol PRN Reason: pain Pantoprazole Sodium (Pantoprazole 40 Mg Vial) 40 mg IV QAMAC [facility] Last Admin: 09/09/20 07:19 Dose: 40 mg Documented by: Naltrexone 3 Mg 1 dose PO HS [facility] Last Admin: 09/08/20 20:53 Dose: Not Given Documented by: Potassium Chloride (Potassium Chloride 20 Meq Tablet) 20 meq PO BIDCC [facility] Last Admin: 09/09/20 10:48 Dose: 20 meq Documented by: Potassium/Phosphorus/Sodium (Neutra Phos 1 Packet) 2 packet PO DAILYP PRN PRN Reason: PHOS <2.5 Last Admin: 09/09/20 12:44 Dose: 2 packet Documented by: Prochlorperazine (Prochlorperazine 10 Mg/2 Ml Vial) 5 mg IV Q4HP PRN PRN Reason: Nausea And Vomiting Senna (Sennosides 1 Tablet) 2 tab PO HS PRN PRN Reason: Constipation Sodium Chloride (0.9 % Sodium Chloride 10 Ml Syringe) 10 ml IV Q8 [facility] Last Admin: 09/09/20 04:22 Dose: Not Given Documented by: Vancomycin HCl (Vancomycin Per Pharmacy) 1 order IV UD [facility]; Protocol A/P Narrative A/P Narrative: #Acute kidney injury: Prerenal secondary to volume depletion/contrast nephropathy. Creatinine down from 4.7-2.6. Nephrology on board. Recommend continued crystalloids.-Renal ultrasound without evidence of hydronephrosis #Acute pancreatitis: Likely medication induced. Discontinued JENNA inhibitor. Clinically improving with conservative management/bowel rest/antiemetics and crystalloids. #Migraines: On propranolol for prophylaxis #History of hypertension, nephrology recommends amlodipine and discontinuation of lisinopril #Fibromyalgia stable at baseline #Irritable bowel syndrome Plan: * Advance diet as tolerated in 24 hours * Continue fluids and supportive care * DC lisinopril. Start amlodipine once systolics over 140 * Continue holding propranolol with low normal blood pressures Prophylaxis: Subcutaneous unfractionated heparin CODE STATUS: Full code Time Spent With Patient Time: Total time spent is greater than 50% in coordination of care (as documented) at patient's floor/unit and/or counseling patient:
[2020-09-09 15:45] LABS: Vancomycin,Random 18.1 ug/mL
[2020-09-09] MEDS: ACETAMINOPHEN 325 MG TABLET PO PRN (20:51)
[2020-09-09] MEDS ORDERED: VANCOMYCIN 1,000 MG in 0.9 % SODIUM CHLORIDE 250 ML IV ONE (21:00)
[2020-09-10] MEDS: ACETAMINOPHEN 325 MG TABLET PO PRN (02:46)
[2020-09-10] MEDS: 0.9 % SODIUM CHLORIDE 10 ML SYRINGE IV SCH ×3 (04:34→20:18)
[2020-09-10] MEDS: 0.9 % SODIUM CHLORIDE 1,000 ML IV SCH ×3 (04:55→13:50)
[2020-09-10 07:12] LABS: ALT/SGPT 11 U/L (<40); AST/SGOT 12 U/L (<32); Albumin 2.8 gm/dL (3.2-5.2); Albumin/Globulin Ratio 0.8 (1.0-2.3); Alkaline Phosphatase 85 U/L (39-117); Bilirubin,Direct < 0.2 mg/dL (0-0.3); Bilirubin,Total 0.2 mg/dL (0.1-1.0); Blood Urea Nitrogen 16 mg/dL (6-20); Calcium 8.2 mg/dL (8.6-10.4); Carbon Dioxide 23 mmol/L (22-30); Chloride 103 mmol/L (96-108); Globulin 3.3 gm/dL (2.2-3.7); Glomerular Filtration Rate 33; Glucose 105 mg/dL (70-105); Lactate Dehydrogenase 155 U/L (135-225); Phosphorous 2.8 mg/dL (2.5-4.5); Triglycerides 334 mg/dL (<150); Uric Acid 5.6 mg/dL (2.5-8.0)
[2020-09-10] MEDS: ESTRADIOL 1 MG TABLET PO SCH (08:25)
[2020-09-10] MEDS: POTASSIUM CHLORIDE 20 MEQ TABLET PO SCH ×2 (08:25→17:39)
[2020-09-10] MEDS: PANTOPRAZOLE 40 MG VIAL IV SCH (08:26)
[2020-09-10] MEDS: HEPARIN 5,000 UNIT/ML VIAL SQ SCH ×2 (08:27→20:18)
--- NOTE | 2020-09-10 11:49 | Internal Med Progress Note ---
SUBJECTIVE Subjective Patient information: Note initiated : 09/10/20 at 11:46 am Service Date, if different from initiated Date: [] Patient: Priscila Ames a 54 y/o F admitted on 09/07/20 for abdominal pain. Chief Complaint: [] Interval history: 09/07 Ms. Ames is a 54 year old F with a history of chronic abdominal pain, diagnosis of chronic pancreatitis in her chart, history of CKD stage III, the recent creatinines would appear to be CKD stage II, fibromyalgia, irritable bowel, history of migraine who presents to the ED with persistent abdominal pain and nausea. Patient was seen on 09/02 with abdominal pain. She had a normal lipase at 60, h owever she had epigastric pain radiating to the back and CT scan of the abdomen with contrast showed inflammation around the pancreatic head. She was diagnosed with acute exacerbation of pancreatitis. She was discharged home with symptomatic medications. States since that time she has not felt better. She has been unable to eat or drink much secondary to nausea as well as the constant epigastric pain which continues to radiate to the back. She has not had any emesis. During this time she is noticed that she has had decreased urine output and feels lightheaded when she stands. She returns because her symptoms have not improved except that her abdomen does not feel as bloated as it was on 09/02. In the ED evaluation shows epigastric tenderness. Lab evaluation is remarkable for acute kidney injury with creatinine of 4.6, whereas it was 1.0 on 09/02. There is mild hyponatremia, sodium 130. Her white count was 14.2, down from 18.8 on 09/02. Lipase today is 45. Total bilirubin and transaminases are normal. She had normal triglycerides back in April. She is being admitted for fur ther management of acute kidney injury and ongoing pancreatitis. 09/08 Patient received further fluid boluses last evening, maintenance fluids increased 250 mL/hour. Eventually started producing urine, and her urine output has picked up this morning. Abdominal pain is improved. Blood pressures have normalized with systolics in the 100s. Creatinine unchanged at 4.7 this morning. Did discuss with Dr. Olivier on the phone, may represent plateau phase of contrast-induced nephropathy. 09/09-patient seen in room. No overnight events. Tolerating clears. Abdominal pain much improved. Renal function improved creatinine down from 4.6-2.7. Nephrology on board. Likely contrast induced nephropathy. Continuing hydration. Nephrology recommends discontinuing lisinopril/chlorthalidone due to incidence of pancreatitis. Start amlodipine 5 mg per nephrology. Will likely discharge in 48 hours pending clinical improvement. 09/10-patient doing well. No overnight events. No concerns per staff. Advanced from clear liquids to full liquids. No overnight events and slept well. Not requiring pain medications. CRP/lipase within normal limits. Creatinine down to 1.7. LFTs stable. Enterococci on urine sensitive to ciprofloxacin. Start p.o. ciprofloxacin and DC vancomycin. Constitutional Vitals: Vital Signs Temp Pulse Resp BP Pulse Ox 96.4 F L 80 16 132/77 96 09/10/20 08:00 09/10/20 08:00 09/10/20 08:00 09/10/20 08:00 09/10/20 08:00 Period Temp Pulse Resp BP Sys/Rinaldi Pulse Ox Last 24 Hr 96.4 F-98.1 F 80-90 15-16 117-158/66-77 94-98 Intake and Output 09/09/20 09/10/20 09/10/20 21:59 05:59 13:59 Intake Total 1400 1730 600 Output Total 700 1000 Balance 700 730 600 Weight 84.368 kg Alert oriented Nonlabored breathing Nondistended abdomen No anxiety Intake & Output: Intake & Output 09/09/20 09/10/20 09/10/20 21:59 05:59 13:59 Intake Total 1400 1730 600 Output Total 700 1000 Balance 700 730 600 Weight 84.368 kg Intake: IV 1000 1250 Sodium Chloride 0.9% 1,000 ml @ 1000 1000 100 mls/hr IV .Q10H [facility] Rx#: [id number] Vancomycin 1,000 mg In Sodium 250 Chloride 0.9% 250 ml @ 250 mls/ hr IV ONCE ONE Rx#:[id number] Oral 400 480 600 Output: Void Amount 700 1000 Other: Urine Appearance Clear Clear Clear Urine Color Bright Yellow Bright Yellow Bright Yellow Urine Odor Normal Normal Normal Stool Size Small Small Stool Color Brown Brown Stool Consistency Liquid Liquid # Bowel Movements 1 OBJ DATA Labs CBC & Chem 7: 09/09/20 09:56 09/10/20 05:32 Labs: Abnormal Lab Results 09/10/20 09/10/20 09/09/20 05:32 05:32 09:56 RBC 3.55 L Hgb 10.7 L Hct 31.7 L Sodium Potassium Chloride Carbon Dioxide Anion Gap BUN Creatinine 1.7 H Glucose Uric Acid Calcium 8.2 L Phosphorus Magnesium GGT 57 H Alkaline Phosphatase C-Reactive Protein 2.20 H Total Protein Albumin 2.8 L Globulin Albumin/Globulin Ratio 0.8 L Triglycerides 334 H Urine Appearance Urine Protein Urine WBC Urine Bacteria Hyaline Casts Urine Mucus 09/09/20 09/08/20 09/08/20 08:50 05:37 03:26 RBC Hgb Hct Sodium Potassium 3.1 L Chloride Carbon Dioxide 21 L Anion Gap BUN 30 H 44 H Creatinine 2.5 H 4.7 H Glucose 146 H Uric Acid 8.6 H Calcium 7.9 L 7.3 L Phosphorus 2.4 L Magnesium 1.5 L GGT 61 H 68 H Alkaline Phosphatase C-Reactive Protein Total Protein 5.3 L Albumin 3.1 L 2.5 L Globulin Albumin/Globulin Ratio 0.9 L Triglycerides 238 H 222 H Urine Appearance Cloudy A Urine Protein 100 A Urine WBC 7 H Urine Bacteria Mod A Hyaline Casts 6 H Urine Mucus Mod A 09/07/20 10:31 RBC Hgb Hct Sodium 130 L Potassium Chloride 85 L Carbon Dioxide Anion Gap 17.0 H BUN 40 H Creatinine 4.6 H Glucose 142 H Uric Acid Calcium Phosphorus Magnesium GGT Alkaline Phosphatase 153 H C-Reactive Protein Total Protein Albumin Globulin 4.4 H Albumin/Globulin Ratio 0.9 L Triglycerides Urine Appearance Urine Protein Urine WBC Urine Bacteria Hyaline Casts Urine Mucus Meds: Medications Acetaminophen (Acetaminophen 325 Mg Tablet) 650 mg PO Q6HP PRN; Protocol PRN Reason: Per Pain Protocol/Fever > 101 Last Admin: 09/10/20 02:46 Dose: 650 mg Documented by: Ciprofloxacin (Ciprofloxacin 500 Mg Tablet) 500 mg PO BID [facility]; Protocol Estradiol (Estradiol 1 Mg Tablet) 1 mg PO QDAY [facility] Last Admin: 09/10/20 08:25 Dose: 1 mg Documented by: Heparin Sodium (Porcine) (Heparin 5,000 Unit/Ml Vial) 5,000 unit SQ Q12 [facility] Last Admin: 09/10/20 08:27 Dose: 5,000 unit Documented by: Hydroxyzine HCl (Hydroxyzine 10 Mg Tablet) 10 mg PO TIDP PRN PRN Reason: Anxiety Last Admin: 09/08/20 22:10 Dose: 10 mg Documented by: Sodium Chloride (Sodium Chloride 0.9%) 1,000 mls @ 100 mls/hr IV .Q10H [facility] Last Admin: 09/10/20 06:48 Dose: 100 mls/hr Documented by: Magnesium Sulfate (Magnesium Sulfate) 2 gm in 50 mls @ 50 mls/hr IV DAILYP PRN PRN Reason: Mag < or = 1.7 Last Infusion: 09/09/20 13:48 Dose: Infused Documented by: Morphine Sulfate (Morphine 4 Mg/Ml Vial) 4 mg IV Q4HP PRN; Protocol PRN Reason: Per Pain Protocol Last Admin: 09/07/20 20:12 Dose: 4 mg Documented by: Ondansetron HCl (Ondansetron 4 Mg/2 Ml Vial) 4 mg IV Q6HP PRN PRN Reason: Nausea And Vomiting Last Admin: 09/07/20 16:05 Dose: 4 mg Documented by: Oxycodone/Acetaminophen (Oxycodone/Apap 10/325mg Tablet) 1 tab PO Q6H PRN; Protocol PRN Reason: pain Pantoprazole Sodium (Pantoprazole 40 Mg Vial) 40 mg IV QAMAC [facility] Last Admin: 09/10/20 08:26 Dose: 40 mg Documented by: Naltrexone 3 Mg 1 dose PO HS [facility] Last Admin: 09/09/20 20:52 Dose: Not Given Documented by: Potassium Chloride (Potassium Chloride 20 Meq Tablet) 20 meq PO BIDCC [facility] Last Admin: 09/10/20 08:25 Dose: 20 meq Documented by: Potassium/Phosphorus/Sodium (Neutra Phos 1 Packet) 2 packet PO DAILYP PRN PRN Reason: PHOS <2.5 Last Admin: 09/09/20 12:44 Dose: 2 packet Documented by: Prochlorperazine (Prochlorperazine 10 Mg/2 Ml Vial) 5 mg IV Q4HP PRN PRN Reason: Nausea And Vomiting Senna (Sennosides 1 Tablet) 2 tab PO HS PRN PRN Reason: Constipation Sodium Chloride (0.9 % Sodium Chloride 10 Ml Syringe) 10 ml IV Q8 [facility] Last Admin: 09/10/20 04:34 Dose: Not Given Documented by: A/P Narrative A/P Narrative: #Acute kidney injury: Prerenal secondary to volume depletion/contrast nephropathy. Creatinine down from 4.7-2.6-> 1.7. Nephrology on board. #Acute pancreatitis: Likely medication induced. Discontinued JENNA inhibitor/thiazide per nephrology recommendation. Clinically improving with conservative management/bowel rest/antiemetics and crystalloids. CRP and lipase back to normal #Enterococcal UTI started on ciprofloxacin for 3 days #Migraines: On propranolol for prophylaxis #History of hypertension, nephrology recommends amlodipine and discontinuation of lisinopril #Fibromyalgia stable at baseline #Irritable bowel syndrome Plan: * Oral ciprofloxacin for 3 days * Advance to full liquids * Continue fluids and supportive care * DC JENNA inhibitor, thiazide start amlodipine 5 mg daily once systolics over 140 * Follow-up nephrology as outpatient on discharge for optimization of hypertension Prophylaxis: Subcutaneous unfractionated heparin CODE STATUS: Full code Time Spent With Patient Time: Total time spent is greater than 50% in coordination of care (as documented) at patient's floor/unit and/or counseling patient:
[2020-09-10] MEDS: CIPROFLOXACIN 500 MG TABLET PO SCH ×2 (12:42→20:18)
[2020-09-10] MEDS: hydrOXYzine 10 MG TABLET PO PRN (20:18)
[2020-09-11] MEDS: morphine 4 MG/ML VIAL IV PRN ×2 (02:27→06:13)
[2020-09-11] MEDS: 0.9 % SODIUM CHLORIDE 10 ML SYRINGE IV SCH ×4 (02:27→20:26)
[2020-09-11] MEDS: ONDANSETRON 4 MG/2 ML VIAL IV PRN (02:34)
[2020-09-11] MEDS: PANTOPRAZOLE 40 MG VIAL IV SCH (07:29)
[2020-09-11] MEDS: POTASSIUM CHLORIDE 20 MEQ TABLET PO SCH ×2 (07:29→16:34)
[2020-09-11 08:00] LABS: ALT/SGPT 13 U/L (<40); AST/SGOT 15 U/L (<32); Albumin 3.1 gm/dL (3.2-5.2); Alkaline Phosphatase 83 U/L (39-117); Bilirubin,Direct 0.2 mg/dL (<0.3); Bilirubin,Total 0.2 mg/dL (0.1-1.0); Blood Urea Nitrogen 9 mg/dL (6-20); Calcium 9.6 mg/dL (8.6-10.4); Carbon Dioxide 24 mmol/L (22-30); Chloride 102 mmol/L (96-108); Globulin 3.2 gm/dL (2.2-3.7); Glomerular Filtration Rate 39; Glucose 109 mg/dL (70-105); Lactate Dehydrogenase 158 U/L (135-225); Phosphorous 3.3 mg/dL (2.5-4.5); Triglycerides 240 mg/dL (<150)
[2020-09-11] MEDS ORDERED: BUTALB/ACETAMINOPHEN/CAFFEINE 1 TABLET PO PRN (08:26)
[2020-09-11] MEDS: ESTRADIOL 1 MG TABLET PO SCH (08:42)
[2020-09-11] MEDS: amLODIPine 5 MG TABLET PO SCH (08:42)
[2020-09-11] MEDS: CIPROFLOXACIN 500 MG TABLET PO SCH ×2 (08:42→21:42)
[2020-09-11] MEDS: HEPARIN 5,000 UNIT/ML VIAL SQ SCH ×2 (08:48→21:43)
[2020-09-11] MEDS: PANTOPRAZOLE 40 MG PACKET PO SCH (08:49)
--- NOTE | 2020-09-11 14:02 | Internal Med Progress Note ---
SUBJECTIVE Subjective Patient information: Note initiated : 09/11/20 at 1:57 pm Service Date, if different from initiated Date: [] Patient: Priscila Ames a 54 y/o F admitted on 09/07/20 for abdominal pain. Chief Complaint: [] Interval history: 09/07 Ms. Ames is a 54 year old F with a history of chronic abdominal pain, diagnosis of chronic pancreatitis in her chart, history of CKD stage III, the recent creatinines would appear to be CKD stage II, fibromyalgia, irritable bowel, history of migraine who presents to the ED with persistent abdominal pain and nausea. Patient was seen on 09/02 with abdominal pain. She had a normal lipase at 60, ho wever she had epigastric pain radiating to the back and CT scan of the abdomen with contrast showed inflammation around the pancreatic head. She was diagnosed with acute exacerbation of pancreatitis. She was discharged home with symptomatic medications. States since that time she has not felt better. She has been unable to eat or drink much secondary to nausea as well as the constant epigastric pain which continues to radiate to the back. She has not had any emesis. During this time she is noticed that she has had decreased urine output and feels lightheaded when she stands. She returns because her symptoms have not improved except that her abdomen does not feel as bloated as it was on 09/02. In the ED evaluation shows epigastric tenderness. Lab evaluation is remarkable for acute kidney injury with creatinine of 4.6, whereas it was 1.0 on 09/02. There is mild hyponatremia, sodium 130. Her white count was 14.2, down from 18.8 on 09/02. Lipase today is 45. Total bilirubin and transaminases are normal. She had normal triglycerides back in April. She is being admitted for furt her management of acute kidney injury and ongoing pancreatitis. 09/08 Patient received further fluid boluses last evening, maintenance fluids increased 250 mL/hour. Eventually started producing urine, and her urine output has picked up this morning. Abdominal pain is improved. Blood pressures have normalized with systolics in the 100s. Creatinine unchanged at 4.7 this morning. Did discuss with Dr. Olivier on the phone, may represent plateau phase of contrast-induced nephropathy. 09/09-patient seen in room. No overnight events. Tolerating clears. Abdominal pain much improved. Renal function improved creatinine down from 4.6-2.7. Nephrology on board. Likely contrast induced nephropathy. Continuing hydration. Nephrology recommends discontinuing lisinopril/chlorthalidone due to incidence of pancreatitis. Start amlodipine 5 mg per nephrology. Will likely discharge in 48 hours pending clinical improvement. 09/10-patient doing well. No overnight events. No concerns per staff. Advanced from clear liquids to full liquids. No overnight events and slept well. Not requiring pain medications. CRP/lipase within normal limits. Creatinine down to 1.7. LFTs stable. Enterococci on urine sensitive to ciprofloxacin. Start p.o. ciprofloxacin and DC vancomycin. 09/11-patient doing better than yesterday. at bedside. Able to tolerate full liquids however had intense episode of nausea and vomiting following morphine administration. She also complained of racing heart this morning. Patient started on cardiac rehab nurse to rule out arrhythmia. Labs and hemodynamics stable. Creatinine down to 1.5, currently on ciprofloxacin for enterococci UTI. Anticipate discharge in 24 hours once able to take p.o. diet Constitutional Vitals: Vital Signs Temp Pulse Resp BP Pulse Ox 98 F 106 H 16 129/77 97 09/11/20 10:41 09/11/20 10:41 09/11/20 10:41 09/11/20 10:41 09/11/20 10:41 Period Temp Pulse Resp BP Sys/Rinaldi Pulse Ox Last 24 Hr 97.5 F-98.2 F 92-119 16-20 129-180/75-99 93-100 Intake and Output 09/10/20 09/11/20 09/11/20 21:59 05:59 13:59 Intake Total 0763 133 6984 Output Total 1450 1550 950 Balance -180 -1050 90 Weight 87.906 kg 87.906 kg Patient Weight 09/12/20 05:59 Weight 87.906 kg Alert oriented Nonlabored breathing Nondistended abdomen Minimal anxiety Intake & Output: Intake & Output 09/10/20 09/11/20 09/11/20 21:59 05:59 13:59 Intake Total 2573 662 7216 Output Total 1450 1550 950 Balance -180 -1050 90 Weight 87.906 kg 87.906 kg Intake: IV 1000 Sodium Chloride 0.9% 1,000 ml @ 1000 100 mls/hr IV .Q10H [facility] Rx#: [id number] Oral 994 [id number] Output: Void Amount 1450 1500 950 Emesis 50 Other: Meal Dinner Lunch Percent of Meal Consumed 100% 0% Feeding Ability Independent Urine Appearance Clear Clear Clear Urine Color Pale Pale Bright Yellow Urine Odor Normal Normal Normal Stool Size Small Stool Color Brown Stool Consistency Liquid OBJ DATA Labs CBC & Chem 7: 09/09/20 09:56 09/11/20 05:21 Labs: Abnormal Lab Results 09/11/20 09/10/20 09/10/20 05:21 05:32 05:32 RBC Hgb Hct Potassium Carbon Dioxide BUN Creatinine 1.5 H 1.7 H Glucose 109 H Calcium 8.2 L Phosphorus Magnesium GGT 56 H 57 H C-Reactive Protein 2.20 H Albumin 3.1 L 2.8 L Albumin/Globulin Ratio 0.8 L Triglycerides 240 H 334 H 09/09/20 09/09/20 09:56 08:50 RBC 3.55 L Hgb 10.7 L Hct 31.7 L Potassium 3.1 L Carbon Dioxide 21 L BUN 30 H Creatinine 2.5 H Glucose 146 H Calcium 7.9 L Phosphorus 2.4 L Magnesium 1.5 L GGT 61 H C-Reactive Protein Albumin 3.1 L Albumin/Globulin Ratio Triglycerides 238 H Meds: Medications Acetaminophen (Acetaminophen 325 Mg Tablet) 650 mg PO Q6HP PRN; Protocol PRN Reason: Per Pain Protocol/Fever > 101 Last Admin: 09/10/20 02:46 Dose: 650 mg Documented by: Acetaminophen/Butalbital/Caffeine (Butalb/Acetaminophen/Caffeine 1 Tablet) 1 tab PO Q4HP PRN PRN Reason: Headache Amlodipine Besylate (Amlodipine 5 Mg Tablet) 5 mg PO DAILY [facility] Last Admin: 09/11/20 08:42 Dose: 5 mg Documented by: Ciprofloxacin (Ciprofloxacin 500 Mg Tablet) 500 mg PO BID [facility]; Protocol Last Admin: 09/11/20 08:42 Dose: 500 mg Documented by: Estradiol (Estradiol 1 Mg Tablet) 1 mg PO QDAY [facility] Last Admin: 09/11/20 08:42 Dose: 1 mg Documented by: Heparin Sodium (Porcine) (Heparin 5,000 Unit/Ml Vial) 5,000 unit SQ Q12 [facility] Last Admin: 09/11/20 08:48 Dose: 5,000 unit Documented by: Hydroxyzine HCl (Hydroxyzine 10 Mg Tablet) 10 mg PO TIDP PRN PRN Reason: Anxiety Last Admin: 09/10/20 20:18 Dose: 10 mg Documented by: Magnesium Sulfate (Magnesium Sulfate) 2 gm in 50 mls @ 50 mls/hr IV DAILYP PRN PRN Reason: Mag < or = 1.7 Last Infusion: 09/09/20 13:48 Dose: Infused Documented by: Morphine Sulfate (Morphine 4 Mg/Ml Vial) 4 mg IV Q4HP PRN; Protocol PRN Reason: Per Pain Protocol Last Admin: 09/11/20 06:13 Dose: 4 mg Documented by: Ondansetron HCl (Ondansetron 4 Mg/2 Ml Vial) 4 mg IV Q6HP PRN PRN Reason: Nausea And Vomiting Last Admin: 09/11/20 02:34 Dose: 4 mg Documented by: Oxycodone/Acetaminophen (Oxycodone/Apap 10/325mg Tablet) 1 tab PO Q6H PRN; Protocol PRN Reason: pain Pantoprazole Sodium ([facility] 40 Mg Packet) [facility] Last Admin: 09/11/20 08:49 Dose: 40 mg Documented by: Naltrexone 3 Mg 1 dose PO HS [facility] Last Admin: 09/10/20 20:18 Dose: Not Given Documented by: Potassium Chloride (Potassium Chloride 20 Meq Tablet) 20 meq PO BIDCC [facility] Last Admin: 09/11/20 07:29 Dose: 20 meq Documented by: Potassium/Phosphorus/Sodium (Neutra Phos 1 Packet) 2 packet PO DAILYP PRN PRN Reason: PHOS <2.5 Last Admin: 09/09/20 12:44 Dose: 2 packet Documented by: Prochlorperazine (Prochlorperazine 10 Mg/2 Ml Vial) 5 mg IV Q4HP PRN PRN Reason: Nausea And Vomiting Last Admin: 09/11/20 06:13 Dose: 5 mg Documented by: Senna (Sennosides 1 Tablet) 2 tab PO HS PRN PRN Reason: Constipation Sodium Chloride (0.9 % Sodium Chloride 10 Ml Syringe) 10 ml IV Q8 [facility] Last Admin: 09/11/20 04:56 Dose: Not Given Documented by: A/P Narrative A/P Narrative: #Acute pancreatitis: Likely medication induced. Discontinued JENNA inhibitor/thiazide per nephrology recommendation. Clinically improving with conservative management/bowel rest/antiemetics and crystalloids. CRP and lipase back to normal. Advance to low-fat diet today #ZAFAR-due to volume depletion/contrast. Creatinine down from 4.7-1.5. Clinically improved. #Chest palpitation-telemetry monitoring for 24 hours #Enterococcal UTI continue ciprofloxacin for 2 days #Migraines: On propranolol for prophylaxis #History of hypertension, nephrology recommends amlodipine 5 mg in lieu of lisinopril/thiazide(suspected cause of pancreatitis) #Fibromyalgia stable at baseline #Irritable bowel syndrome Plan: * Oral ciprofloxacin for additional 48 hours * Advance to soft nonfat diet * Continue amlodipine * Telemetry monitoring for 24 hours * Follow-up nephrology as outpatient on discharge for optimization of hypertension Prophylaxis: Subcutaneous unfractionated heparin CODE STATUS: Full code Time Spent With Patient Time: Total time spent is greater than 50% in coordination of care (as documented) at patient's floor/unit and/or counseling patient:
[2020-09-11] MEDS: oxyCODONE/APAP 10/325MG TABLET PO PRN ×2 (16:33→22:22)
[2020-09-11] MEDS: ONDANSETRON 4 MG ODT TABLET SL PRN ×2 (16:34→22:22)
[2020-09-11] MEDS: hydrOXYzine 10 MG TABLET PO PRN (21:42)
[2020-09-12] MEDS: oxyCODONE/APAP 10/325MG TABLET PO PRN (04:20)
[2020-09-12] MEDS: 0.9 % SODIUM CHLORIDE 10 ML SYRINGE IV SCH ×3 (04:20→21:36)
[2020-09-12] MEDS: ONDANSETRON 4 MG ODT TABLET SL PRN ×2 (04:20→13:12)
[2020-09-12 06:50] LABS: ALT/SGPT 13 U/L (<40); AST/SGOT 19 U/L (<32); Albumin 3.1 gm/dL (3.2-5.2); Alkaline Phosphatase 84 U/L (39-117); Bilirubin,Direct < 0.2 mg/dL (0-0.3); Bilirubin,Total 0.2 mg/dL (0.1-1.0); Blood Urea Nitrogen 6 mg/dL (6-20); Calcium 9.4 mg/dL (8.6-10.4); Carbon Dioxide 26 mmol/L (22-30); Chloride 99 mmol/L (96-108); Globulin 3.2 gm/dL (2.2-3.7); Glomerular Filtration Rate 42; Glucose 99 mg/dL (70-105); Lactate Dehydrogenase 175 U/L (135-225); Phosphorous 4.5 mg/dL (2.5-4.5); Triglycerides 164 mg/dL (<150); Uric Acid 4.3 mg/dL (2.5-8.0)
[2020-09-12] MEDS: PANTOPRAZOLE 40 MG PACKET PO SCH (07:32)
[2020-09-12] MEDS: ESTRADIOL 1 MG TABLET PO SCH (08:48)
[2020-09-12] MEDS: amLODIPine 5 MG TABLET PO SCH (08:48)
[2020-09-12] MEDS: CIPROFLOXACIN 500 MG TABLET PO SCH ×2 (08:48→21:35)
[2020-09-12] MEDS: POTASSIUM CHLORIDE 20 MEQ TABLET PO SCH ×2 (08:48→18:07)
[2020-09-12] MEDS: HEPARIN 5,000 UNIT/ML VIAL SQ SCH ×2 (08:49→21:35)
--- NOTE | 2020-09-12 10:03 | Internal Med Progress Note ---
SUBJECTIVE Subjective Patient information: Note initiated : 09/12/20 at 9:59 am Service Date, if different from initiated Date: [] Patient: Priscila Ames a 54 y/o F admitted on 09/07/20 for abdominal pain. Chief Complaint: [] Interval history: 09/07 Ms. Ames is a 54 year old F with a history of chronic abdominal pain, diagnosis of chronic pancreatitis in her chart, history of CKD stage III, the recent creatinines would appear to be CKD stage II, fibromyalgia, irritable bowel, history of migraine who presents to the ED with persistent abdominal pain and nausea. Patient was seen on 09/02 with abdominal pain. She had a normal lipase at 60, ho wever she had epigastric pain radiating to the back and CT scan of the abdomen with contrast showed inflammation around the pancreatic head. She was diagnosed with acute exacerbation of pancreatitis. She was discharged home with symptomatic medications. States since that time she has not felt better. She has been unable to eat or drink much secondary to nausea as well as the constant epigastric pain which continues to radiate to the back. She has not had any emesis. During this time she is noticed that she has had decreased urine output and feels lightheaded when she stands. She returns because her symptoms have not improved except that her abdomen does not feel as bloated as it was on 09/02. In the ED evaluation shows epigastric tenderness. Lab evaluation is remarkable for acute kidney injury with creatinine of 4.6, whereas it was 1.0 on 09/02. There is mild hyponatremia, sodium 130. Her white count was 14.2, down from 18.8 on 09/02. Lipase today is 45. Total bilirubin and transaminases are normal. She had normal triglycerides back in April. She is being admitted for furt her management of acute kidney injury and ongoing pancreatitis. 09/08 Patient received further fluid boluses last evening, maintenance fluids increased 250 mL/hour. Eventually started producing urine, and her urine output has picked up this morning. Abdominal pain is improved. Blood pressures have normalized with systolics in the 100s. Creatinine unchanged at 4.7 this morning. Did discuss with Dr. Olivier on the phone, may represent plateau phase of contrast-induced nephropathy. 09/09-patient seen in room. No overnight events. Tolerating clears. Abdominal pain much improved. Renal function improved creatinine down from 4.6-2.7. Nephrology on board. Likely contrast induced nephropathy. Continuing hydration. Nephrology recommends discontinuing lisinopril/chlorthalidone due to incidence of pancreatitis. Start amlodipine 5 mg per nephrology. Will likely discharge in 48 hours pending clinical improvement. 09/10-patient doing well. No overnight events. No concerns per staff. Advanced from clear liquids to full liquids. No overnight events and slept well. Not requiring pain medications. CRP/lipase within normal limits. Creatinine down to 1.7. LFTs stable. Enterococci on urine sensitive to ciprofloxacin. Start p.o. ciprofloxacin and DC vancomycin. 09/11-patient doing better than yesterday. at bedside. Able to tolerate full liquids however had intense episode of nausea and vomiting following morphine administration. She also complained of racing heart this morning. Patient started on utilization management manager to rule out arrhythmia. Labs and hemodynamics stable. Creatinine down to 1.5, currently on ciprofloxacin for enterococci UTI. Anticipate discharge in 24 hours once able to take p.o. diet 09/12-patient continues to feel nauseous. Gradually advancing diet. Magnesium 1.4 start p.o. magnesium. Creatinine down to 1.4. Patient does not feel quite back to baseline would want to stay another day. LFTs normal. No arrhythmia except for persistent sinus tachycardia on telemetry. Constitutional Vitals: Vital Signs Temp Pulse Resp BP Pulse Ox 97.5 F 107 H 16 132/69 91 09/12/20 06:36 09/12/20 06:36 09/12/20 06:36 09/12/20 06:36 09/12/20 06:36 Period Temp Pulse Resp BP Sys/Rinaldi Pulse Ox Last 24 Hr 97.5 F-99.1 F 95-111 16-18 121-165/68-98 91-99 Intake and Output 09/11/20 09/12/20 09/12/20 21:59 05:59 13:59 Intake Total 840 300 Output Total 1800 850 250 Balance -960 -550 -250 Weight 88.451 kg Alert oriented Nonlabored breathing Nondistended abdomen Appears anxious Intake & Output: Intake & Output 09/11/20 09/12/20 09/12/20 21:59 05:59 13:59 Intake Total 840 300 Output Total 1800 850 250 Balance -960 -550 -250 Weight 88.451 kg Intake: Oral 840 300 Output: Void Amount 1800 850 250 Other: Meal Dinner Breakfast Percent of Meal Consumed 50% 0% Feeding Ability Independent Independent Urine Appearance Clear Clear Clear Urine Color Bright Yellow Straw Bright Yellow Urine Odor Normal OBJ DATA Labs CBC & Chem 7: 09/09/20 09:56 09/12/20 05:08 Labs: Abnormal Lab Results 09/12/20 09/11/20 09/10/20 05:08 05:21 05:32 RBC Hgb Hct Potassium Carbon Dioxide BUN Creatinine 1.4 H 1.5 H Glucose 109 H Calcium Phosphorus Magnesium 1.4 L GGT 53 H 56 H C-Reactive Protein 2.20 H Albumin 3.1 L 3.1 L Albumin/Globulin Ratio Triglycerides 164 H 240 H 09/10/20 09/09/20 09/09/20 05:32 09:56 08:50 RBC 3.55 L Hgb 10.7 L Hct 31.7 L Potassium 3.1 L Carbon Dioxide 21 L BUN 30 H Creatinine 1.7 H 2.5 H Glucose 146 H Calcium 8.2 L 7.9 L Phosphorus 2.4 L Magnesium 1.5 L GGT 57 H 61 H C-Reactive Protein Albumin 2.8 L 3.1 L Albumin/Globulin Ratio 0.8 L Triglycerides 334 H 238 H Meds: Medications Acetaminophen (Acetaminophen 325 Mg Tablet) 650 mg PO Q6HP PRN; Protocol PRN Reason: Per Pain Protocol/Fever > 101 Last Admin: 09/10/20 02:46 Dose: 650 mg Documented by: Acetaminophen/Butalbital/Caffeine (Butalb/Acetaminophen/Caffeine 1 Tablet) 1 tab PO Q4HP PRN PRN Reason: Headache Amlodipine Besylate (Amlodipine 5 Mg Tablet) 5 mg PO DAILY [facility] Last Admin: 09/12/20 08:48 Dose: 5 mg Documented by: Ciprofloxacin (Ciprofloxacin 500 Mg Tablet) 500 mg PO BID [facility]; Protocol Last Admin: 09/12/20 08:48 Dose: 500 mg Documented by: Estradiol (Estradiol 1 Mg Tablet) 1 mg PO QDAY [facility] Last Admin: 09/12/20 08:48 Dose: 1 mg Documented by: Heparin Sodium (Porcine) (Heparin 5,000 Unit/Ml Vial) 5,000 unit SQ Q12 [facility] Last Admin: 09/12/20 08:49 Dose: 5,000 unit Documented by: Hydroxyzine HCl (Hydroxyzine 10 Mg Tablet) 10 mg PO TIDP PRN PRN Reason: Anxiety Last Admin: 09/11/20 21:42 Dose: 10 mg Documented by: Magnesium Sulfate (Magnesium Sulfate) 2 gm in 50 mls @ 50 mls/hr IV DAILYP PRN PRN Reason: Mag < or = 1.7 Last Infusion: 09/09/20 13:48 Dose: Infused Documented by: Morphine Sulfate (Morphine 4 Mg/Ml Vial) 4 mg IV Q4HP PRN; Protocol PRN Reason: Per Pain Protocol Last Admin: 09/11/20 06:13 Dose: 4 mg Documented by: Ondansetron HCl (Ondansetron 4 Mg Odt Tablet) 4 mg SL Q6HP PRN PRN Reason: Nausea And Vomiting Last Admin: 09/12/20 04:20 Dose: 4 mg Documented by: Oxycodone/Acetaminophen (Oxycodone/Apap 10/325mg Tablet) 1 tab PO Q6H PRN; Pro tocol PRN Reason: pain Last Admin: 09/12/20 04:20 Dose: 1 tab Documented by: Pantoprazole Sodium (Pantoprazole 40 Mg Packet) 40 mg PO QAMAC [facility] Last Admin: 09/12/20 07:32 Dose: 40 mg Documented by: Naltrexone 3 Mg 1 dose PO HS [facility] Last Admin: 09/11/20 20:25 Dose: Not Given Documented by: Potassium Chloride (Potassium Chloride 20 Meq Tablet) 20 meq PO BIDCC [facility] Last Admin: 09/12/20 08:48 Dose: 20 meq Documented by: Potassium/Phosphorus/Sodium (Neutra Phos 1 Packet) 2 packet PO DAILYP PRN PRN Reason: PHOS <2.5 Last Admin: 09/09/20 12:44 Dose: 2 packet Documented by: Prochlorperazine (Prochlorperazine 10 Mg/2 Ml Vial) 5 mg IV Q4HP PRN PRN Reason: Nausea And Vomiting Last Admin: 09/11/20 06:13 Dose: 5 mg Documented by: Senna (Sennosides 1 Tablet) 2 tab PO HS PRN PRN Reason: Constipation Sodium Chloride (0.9 % Sodium Chloride 10 Ml Syringe) 10 ml IV Q8 [facility] Last Admin: 09/12/20 04:20 Dose: Not Given Documented by: A/P Narrative A/P Narrative: #Acute pancreatitis: Likely medication induced. Discontinued JENNA inhibitor/thiazide per nephrology recommendation. Clinically improving with conservative management/bowel rest/antiemetics and crystalloids. CRP and lipase back to normal. Advance diet as tolerated. Tachycardia improved #ZAFAR-due to volume depletion/contrast. Creatinine down from 4.7-1.4. Clinically improved. #Chest palpitation-telemetry monitoring for 24 hours #Enterococcal UTI continue ciprofloxacin for 2 days #Migraines: On propranolol for prophylaxis #History of hypertension, nephrology recommends amlodipine 5 mg in lieu of lisinopril/thiazide(suspected cause of pancreatitis) #Fibromyalgia stable at baseline #Irritable bowel syndrome Plan: * Oral ciprofloxacin for additional 24 hours * Diet advance as tolerated * Magnesium replacement * Continue amlodipine * Telemetry monitoring for 24 hours * Follow-up nephrology as outpatient on discharge for optimization of hypertension Prophylaxis: Subcutaneous unfractionated heparin CODE STATUS: Full code Time Spent With Patient Time: Total time spent is greater than 50% in coordination of care (as documented) at patient's floor/unit and/or counseling patient:
[2020-09-12] MEDS: MAGNESIUM OXIDE 400 MG TABLET PO SCH ×2 (10:27→21:35)
[2020-09-12] MEDS: POTASSIUM CHLORIDE 20 MEQ PACKET PO SCH (17:52)
[2020-09-13] MEDS: 0.9 % SODIUM CHLORIDE 10 ML SYRINGE IV SCH (04:50)
[2020-09-13] MEDS: PANTOPRAZOLE 40 MG PACKET PO SCH (07:09)
[2020-09-13 07:19] LABS: ALT/SGPT 16 U/L (<40); AST/SGOT 23 U/L (<32); Albumin 3.5 gm/dL (3.2-5.2); Albumin/Globulin Ratio 1.1 (1.0-2.3); Alkaline Phosphatase 90 U/L (39-117); Bilirubin,Direct < 0.2 mg/dL (0-0.3); Bilirubin,Total 0.2 mg/dL (0.1-1.0); Blood Urea Nitrogen 6 mg/dL (6-20); Calcium 9.7 mg/dL (8.6-10.4); Carbon Dioxide 30 mmol/L (22-30); Chloride 97 mmol/L (96-108); Globulin 3.2 gm/dL (2.2-3.7); Glomerular Filtration Rate 39; Glucose 101 mg/dL (70-105); Lactate Dehydrogenase 182 U/L (135-225); Phosphorous 4.1 mg/dL (2.5-4.5); Triglycerides 157 mg/dL (<150); Uric Acid 4.1 mg/dL (2.5-8.0)
[2020-09-13] MEDS: CIPROFLOXACIN 500 MG TABLET PO SCH (08:37)
[2020-09-13] MEDS: ESTRADIOL 1 MG TABLET PO SCH (08:38)
[2020-09-13] MEDS: POTASSIUM CHLORIDE 20 MEQ PACKET PO SCH (08:38)
[2020-09-13] MEDS: amLODIPine 5 MG TABLET PO SCH (08:38)
[2020-09-13] MEDS: MAGNESIUM OXIDE 400 MG TABLET PO SCH (08:38)
[2020-09-13] MEDS: HEPARIN 5,000 UNIT/ML VIAL SQ SCH (08:39)
--- NOTE | 2020-09-13 12:47 | Discharge Summary ---
Discharge Provider Provider Patient information: Note initiated : 09/13/20 at 12:45 pm Service Date, if different from initiated Date: [] Patient: Priscila Ames a 54 y/o F admitted on 09/07/20 for abdominal pain. Discharge diagnosis #Acute pancreatitis: Likely medication induced. Discontinued JENNA inhibitor/thiazide per nephrology recommendation. Clinically resolved with conservative management/bowel rest/antiemetics and crystalloids. CRP and lipase back to normal. Able to tolerate soft diet. Discharging home today with advised to follow-up with PCP in 5 to 7 days #ZAFAR-due to volume depletion/contrast. Creatinine down from 4.7-1.4. Clinically improved. Follow-up with nephrology Dr. Olivier in 7 to 10 days #Chest palpitation-sinus tachycardia on telemetry. Resolved #Enterococcal UTI continue resolved with ciprofloxacin #Migraines: Stable on propranolol #History of hypertension, nephrology recommends amlodipine 5 mg in lieu of lisinopril/thiazide(suspected cause of pancreatitis). Further medication optimization as per nephrology during follow-up #Fibromyalgia stable at baseline #Irritable bowel syndrome Brief hospital course Ms. Ames is a 54 year old F with a history of chronic abdominal pain, diagnosis of chronic pancreatitis in her chart, history of CKD stage III, the recent creatinines would appear to be CKD stage II, fibromyalgia, irritable bowel, history of migraine who presents to the ED with persistent abdominal pain and nausea. Patient was seen on 09/02 with abdominal pain. She had a normal lipase at 60, however she had epigastric pain radiating to the back and CT scan of the abdomen with contrast showed inflammation around the pancreatic head. She was diagnosed with acute exacerbation of pancreatitis. She was discharged home with symptomatic medications. States since that time she has not felt better. She has been unable to eat or drink much secondary to nausea as well as the constant epigastric pain which continues to radiate to the back. She has not had any emesis. During this time she is noticed that she has had decreased urine output and feels lightheaded when she stands. She returns because her symptoms have not improved except that her abdomen does not feel as bloated as it was on 09/02. In the ED evaluation shows epigastric tenderness. Lab evaluation is remarkable for acute kidney injury with creatinine of 4.6, whereas it was 1.0 on 09/02. There is mild hyponatremia, sodium 130. Her white count was 14.2, down from 18.8 on 09/02. Lipase today is 45. Total bilirubin and transaminases are normal. She had normal triglycerides back in April. She is being admitted for further management of acute kidney injury and ongoing pancreatitis. 09/08 Patient received further fluid boluses last evening, maintenance fluids increased 250 mL/hour. Eventually started producing urine, and her urine output has picked up this morning. Abdominal pain is improved. Blood pressures have normalized with systolics in the 100s. Creatinine unchanged at 4.7 this morning. Did discuss with Dr. Olivier on the phone, may represent plateau phase of contrast-induced nephropathy. 09/09-patient seen in room. No overnight events. Tolerating clears. Abdominal pain much improved. Renal function improved creatinine down from 4.6-2.7. Nephrology on board. Likely contrast induced nephropathy. Continuing hydration. Nephrology recommends discontinuing lisinopril/chlorthalidone due to incidence of pancreatitis. Start amlodipine 5 mg per nephrology. Will likely discharge in 48 hours pending clinical improvement. 09/10-patient doing well. No overnight events. No concerns per staff. Advanced from clear liquids to full liquids. No overnight events and slept well. Not requiring pain medications. CRP/lipase within normal limits. Creatinine down to 1.7. LFTs stable. Enterococci on urine sensitive to ciprofloxacin. Start p.o. ciprofloxacin and DC vancomycin. 09/11-patient doing better than yesterday. at bedside. Able to tolerate full liquids however had intense episode of nausea and vomiting following morphine administration. She also complained of racing heart this morning. Patient started on satellite project site monitor to rule out arrhythmia. Labs and hem odynamics stable. Creatinine down to 1.5, currently on ciprofloxacin for enterococci UTI. Anticipate discharge in 24 hours once able to take p.o. diet 09/12-patient continues to feel nauseous. Gradually advancing diet. Magnesium 1.4 start p.o. magnesium. Creatinine down to 1.4. Patient does not feel quite back to baseline would want to stay another day. LFTs normal. No arrhythmia except for persistent sinus tachycardia on telemetry. Date of admission: 09/07/20 15:15 Discharge date: 09/13/20 Primary care physician: Tegan Mcdonough PA-C Consults: 09/07/20 Consult to Physician [CONS] Stat Comment: Consulting Provider: Logan Olivier Reason For Exam: Physician to Consult 09/07/20 13:35 Consult to Physician [CONS] Stat Comment: Consulting Provider: Abigail Connor Reason For Exam: Physician to Consult Discharge Meds Discharge Medications Home Medications acetaminophen 1,000 mg PO PRN PRN 05/29/18 [History Confirmed 09/07/20 Last Taken Unknown] butalbital 50 mg-acetaminophen 325 mg-caffeine 40 mg-codeine 30 mg cap 1 cap PO Q4H PRN #30 cap 04/15/19 [Rx Confirmed 09/07/20 Last Taken Unknown] loperamide See Rx Instructions PO .COMPLEX PRN 07/09/20 [History Confirmed 09/07/20 Last Taken Unknown] naltrexone 3 mg PO HS 07/09/20 [History Confirmed 09/07/20 Last Taken 09/06/20 3 mg] cyclobenzaprine 10 mg tablet 10 mg PO TID PRN #90 tab 08/07/20 [Rx Confirmed 09/07/20 Last Taken 09/06/20 20 mg] ondansetron HCl [Zofran] 4 mg PO Q6H PRN #14 tab 09/02/20 [Rx Confirmed 09/07/20 Last Taken Unknown] oxycodone-acetaminophen [Percocet] 1 tab PO Q6H PRN #14 tab 09/02/20 [Rx Confirmed 09/07/20 Last Taken Unknown] clobetasol 1 applic TOPICAL BID PRN 09/07/20 [History Confirmed 09/07/20 Last Taken Unknown] estradiol 1 mg tablet 1 mg PO QDAY #90 tab 09/07/20 [Rx Confirmed 09/07/20 Last Taken 09/07/20 1 mg] propranolol 80 mg capsule,extended release 24 hr 160 mg PO QDAY #180 cap 09/07/20 [Rx Confirmed 09/07/20 Last Taken 09/07/20 80 mg] rabeprazole 20 mg tablet,delayed release 20 mg PO QDAY #90 tab 09/07/20 [Rx Confirmed 09/07/20 Last Taken 09/07/20 20 mg] amlodipine 5 mg PO DAILY #30 tab 09/13/20 [Rx Last Taken Unknown] COURSE Hospital Course Hospital course: . Discharge diagnosis: Acute pancreatitis likely drug-induced Time Spent with Patient Time attestation: Total time spent providing and/or coordinating discharge services: EXAM Constitutional Vitals: Temp Pulse Resp BP Pulse Ox 98 F 111 H 18 131/74 96 09/13/20 11:22 09/13/20 11:22 09/13/20 11:22 09/13/20 11:22 09/13/20 11:22 Discharge Data Data Completed and Pending Labs on day of discharge: Labs from last 24 hours 09/13/20 05:18 Sodium 138 Potassium 4.0 Chloride 97 Carbon Dioxide 30 Anion Gap 11.0 BUN 6 Creatinine 1.5 H GFR Calculation 39 Glucose 101 Uric Acid 4.1 Calcium 9.7 Phosphorus 4.1 Magnesium 1.8 Total Bilirubin 0.2 Direct Bilirubin < 0.2 GGT 61 H AST 23 ALT 16 Alkaline Phosphatase 90 Lactate Dehydrogenase 182 Total Protein 6.7 Albumin 3.5 Globulin 3.2 Albumin/Globulin Ratio 1.1 Triglycerides 157 H Discharge Plan Patient/Caregiver Discharge Instructions Activity: increase activity as tolerated Diet: Low Fat Activity Restrictions/Additional Instructions: Follow-up PCP 5 to 7 days Follow-up nephrology Dr. Olivier in 7 to 10 days Discontinue lisinopril and chlorthalidone(likely cause of pancreatitis) and continue 5 mg of amlodipine daily until follow-up with nephrology for further optimization of hypertension Follow strict dietary recommendations to prevent subsequent pancreatitis flare, low-fat diet Return to ER if worsening abdominal pain nausea vomiting noted Prescriptions: New amlodipine 5 mg Tablet 5 mg PO DAILY Qty: 30 RF: 0 Continued [id number] [id number] mg capsule 1 cap PO Q4H PRN (Reason: migraine headache) Qty: 30 RF: 0 cyclobenzaprine 10 mg tablet 10 mg PO TID PRN (Reason: muscle spasm) Qty: 90 RF: 0 propranolol 80 mg capsule,extended release 24hr 160 mg PO QDAY Qty: 180 RF: 1 rabeprazole 20 mg tablet,delayed release (DR/EC) 20 mg PO QDAY Qty: 90 RF: 1 estradiol 1 mg tablet 1 mg PO QDAY Qty: 90 RF: 1 acetaminophen 1,000 mg PO PRN PRN (Reason: Pain) RF: 0 loperamide See Rx Instructions PO .COMPLEX PRN (Reason: Diarrhea) RF: 0 naltrexone 3 mg PO HS RF: 0 oxycodone-acetaminophen [Percocet] 10-325 mg tablet 1 tab PO Q6H PRN (Reason: pain) Qty: 14 RF: 0 ondansetron HCl [Zofran] 4 mg tablet 4 mg PO Q6H PRN (Reason: nausea and vomiting) Qty: 14 RF: 0 clobetasol 0.05 % cream 1 applic TOPICAL BID PRN (Reason: Rash) RF: 0 Discontinued chlorthalidone 25 mg tablet 25 mg PO QDAY Qty: 30 RF: 2 lisinopril 40 mg tablet 40 mg PO QDAY Qty: 90 RF: 1 Follow Up Plan Follow up with: Tegan Mcdonough PA-C [Primary Care Provider] - Patient Disposition: Home, Self-Care Rehab Potential: Fair I certify that the patient requires SNF services: No Overall status at discharge: patient is progressing back to baseline Discharge Orders: Discharge Order (Routine); Ordered 09/13/20 Ordered By: Khurram Padgett
== END 2020-09-13 14:00 | disposition home or self-care (01) | DRG 438 ==
LOC: ED 10:10 → MEDSUR 15:15
PROVIDERS: ADMIT Internal Medicine; ATTEND Internal Medicine